=== PATIENT | male | born 1970 | race Caucasian/White ===

== ENCOUNTER 2017-12-20 13:46 | Inpatient (IN) | payer MEDICAID ==
[~2017-12-20] VITALS: Ht 134.6 cm; Wt 41.3 kg
[2017-12-20 14:02] VITALS: BP 122/70
--- NOTE | 2017-12-20 14:02 | NUR ---
47/M leroy GLORIA from a [facility] care facility for evaluation of diarrhea starting today. Patient had x2 episodes of diarrhea. Per EMS, pt is new to the facility and according to them, patient's behavior and mentation is his baseline. Pt non-verbal. Pt agitated and attempting to get out of bed. Pt rocking back in forth in bed. Bilateral upper extremities contracted and bilateral lower extremities contracted. Patient noted diaphoretic. Pt placed in a gown, placed on online services manager, pulse oximetry and blood pressure monitoring. Pt noted sinus tachycardiac. All belongings placed in a belongings back and placed behind the gurney.
[2017-12-20] MEDS ORDERED: NACL 0.9% 1,000 ML IV ONE ×3 (14:05→16:40)
--- NOTE | 2017-12-20 14:22 | NUR ---
LAB AT BEDSIDE FOR BLOOD DRAW.
[2017-12-20] MEDS ORDERED: LORazepam 2 MG/ML VIAL IVP ONE (14:45)
[2017-12-20] MEDS ORDERED: METR250T2 GT (14:46)
[2017-12-20] MEDS ORDERED: TRAZ-286 GT (14:46)
[2017-12-20] MEDS ORDERED: ACET-2619 GT (14:46)
[2017-12-20] MEDS ORDERED: METO5SOL19 GT (14:46)
[2017-12-20] MEDS ORDERED: OLAN2.5T1 GT (14:46)
[2017-12-20] MEDS ORDERED: OLAN20TA1 GT (14:46)
[2017-12-20] MEDS ORDERED: LACT10SO1 GT (14:46)
[2017-12-20] MEDS ORDERED: ALPR0.252 PO (14:46)
[2017-12-20 14:52] LABS: HEMATOCRIT 39.3 % (36-52); HEMOGLOBIN 13.3 g/dL (12.0-18.0); MEAN CORPUSCULAR HEMOGLOBIN 28 pg (27-31); MEAN CORPUSCULAR HGB CONC 34 g/dL (33-37); MEAN CORPUSCULAR VOLUME 84 fL (80-94); PLATELET COUNT (AUTO) 323 K/uL (140-450); RED BLOOD CELL COUNT(AUTO) 4.71 MIL/uL (4.20-6.10); RED CELL DISTRIBUTION WIDTH 16.6 % (11.6-13.7)
[2017-12-20 15:00] LABS: ANION GAP 13.6 (8-16); CARBON DIOXIDE 25.3 mmol/L (21-32); CREATININE 1.1 mg/dL (0.7-1.3); POTASSIUM 3.9 mmol/L (3.5-5.1)
[2017-12-20 15:08] LABS: PROTHROMBIN TIME 13.8 secs (10.8-13.4)
[2017-12-20 15:11] LABS: WHITE BLOOD COUNT (AUTO) 46.8 K/uL (4.8-10.8)
[2017-12-20 15:14] LABS: ALBUMIN 1.8 g/dL (3.4-5.0); LYMPHOCYTES % (MANUAL) 1 % (20-46); MONOCYTES % (MANUAL) 1 % (5-12); TOTAL BILIRUBIN 0.6 mg/dL (0.0-1.0)
[2017-12-20 15:34] LABS: APPEARANCE,URINE CLEAR (CLEAR); BILIRUBIN,URINE NEGATIVE (NEGATIVE); BLOOD, URINE NEGATIVE (NEGATIVE); COLOR,URINE ORANGE (YELLOW); LEUKOCYTE ESTERASE ,URINE NEGATIVE (NEGATIVE); NITRITE, URINE NEGATIVE (NEGATIVE); PH,URINE 5.5 (5.0-9.0); UGLUCOSE NEGATIVE (NEGATIVE)
[2017-12-20 15:36] LABS: RBC,URINE 0-5 (RARE) /HPF (0-5)
--- NOTE | 2017-12-20 15:49 | NUR ---
Spoke with Anny Lebron who is the road gang supervisor at [employer]. She was updated on the status. Pt resides at the [facility]. Patient's uncle Sunil Umana is next of kin.
[2017-12-20] MEDS ORDERED: metroNIDAZOLE 250 MG TAB GT ONE (15:50)
[2017-12-20] MEDS ORDERED: PIPERACILLIN/TAZOBACTAM 3.375 GM in DEXTROSE 5% 50 ML IV ONE (15:55)
--- NOTE | 2017-12-20 16:05 | NUR ---
g-tube residual 0 ml.
--- NOTE | 2017-12-20 16:12 | NUR ---
Pt had x1 episode of diarrhea. Pt was changed and new brief applied. Pt tolerated well. Placed in position of comfort.
--- NOTE | 2017-12-20 16:15 | NUR ---
Pt placed on contact isolation precautions at this for c-diff per Dr. Mccauley.
[2017-12-20] MEDS ORDERED: PIPERACILLIN/TAZOBACTAM 3.375 GM VIAL IV ONE (16:19)
--- NOTE | 2017-12-20 17:05 | NUR ---
Pt had another bowel movement, yellow, foul smelling, diarrhea episode. Pericare provided, new brief applied. New sheets, chucks placed under patient and new gown applied. Pt tolerated well. Vitals are stable at this time.
--- NOTE | 2017-12-20 17:33 | NUR ---
Pt resting comfortably at this time. Pt in stable condition.
--- NOTE | 2017-12-20 18:08 | NUR ---
Pt transferred to ICU 7 via rjose antonio on cardiac monitoring accompanie by EMT Mark, DERIC Zaldivar and myself.
--- NOTE | 2017-12-20 18:08 | NUR ---
Report given to Anny WOOD in ICU.
[2017-12-20] MEDS ORDERED: ACETAMINOPHEN 325 MG TAB GT PRN ×2 (18:10)
[2017-12-20] MEDS ORDERED: LACTULOSE 20 GM/30 ML UDC GT PRN (18:10)
[2017-12-20] MEDS ORDERED: HYDROcodone/APAP 5/325 MG 1 TAB TAB GT PRN (18:10)
--- NOTE | 2017-12-20 18:15 | NUR ---
RECEIVED PT FROM ER VIA GURNEY. PT AWAKE, ALERT, NONVERBAL. SPONTANOUS EYES OPENING. SKIN DRY AND WARM TO TOUCH. ON O2 AT 2 LTR/MIN VIA N/C. LUNGS SOUND DIMINISHED ON AUSCULTATION. PERIPHERAL LINE ON RIGHT HAND 18G. RUNNING NS BOLUS. IV SITE INTACT. NOTED WITH GTUBE ON LUQ. ABDOMEN SOFT, ROUND AND NON-TENDER. BOWEL SOUND PRESENT ON ALL FOUR QUADRANTS. GEIGER'S CATH IN PLACE DRAINING DARK YELLOW URINE VIA GRAVITY. PT HAD X1 BM, YELLOW WATERY STOOL SMALL AMOUNT. STOOL SAMPLE FOR STOOL CULTURE AND C. DIFF TAKEN TO THE LAB. MRSA NARES DONE. PT NOTED WITH BLANCHABLE REDNESS ON LEFT ELBOW AND SACRO COCCYX AREA, NO SKIN TEAR. PHOTO TAKEN. APPLIED RECTAL BAG. KEPT PT CLEAN AND COMFORTABLE. BED IN LOW POSITION, LOCKED. VS T 98.3 P125 R 20 BP 97/83. WILL CONTINUE TO MONITOR.
--- NOTE | 2017-12-20 18:20 | NUR ---
PT NOTED WITH BOTH UPPER AND LOWER EXTREMITIES CONTRACTURES.
--- NOTE | 2017-12-20 19:30 | NUR ---
RECEIVED REPORT FROM AM SHIFT. PT IS AWAKE,NON VERBAL AT THIS TIME. PT ON O2 VIA N/C AT 2 LPM, NO S/S OF RESP DISTRESS,NO SOB AT THIS TIME. LUNGS SOUND CLEAR BILATERALLY. HOB UP 30-45 DEGREES. IV TO RIGHT HAND NO 18. IV NS BOLUS BAG NO [address] PER REPORT[address] GT IN PLACE NO RESIDUAL NOTED,ABD SOFT NON DISTENDED. POSITIVE BOWEL SOUND TO ALL QUADRANTS. PER REPORT PT IS NPO EXCEPT MEDS AT THIS TIME. BUE/BLE CONTRACTURE.EDEMA RIGHT HAND NON PITTING.SKIN NON INTACT PERIRECTAL INCONTINENT DERMATITIS AND LEFT ELBOW REDNESS BLANCHABLE.F/C IN PLACE WITH CLOUDY URINE. KEPT CLEAN AND DRY.
--- NOTE | 2017-12-20 19:34 | NUR ---
REPORT GIVEN TO NOC SHIFT RN BEHZAD FOR CONTINUITY OF CARE. PT ON STABLE CONDITION.
[2017-12-20 20:00] VITALS: BP 99/77
--- NOTE | 2017-12-20 20:30 | NUR ---
IV TO RIGHT HAND PULLED OUT BY PT AND REINSERTED TO LEFT HAND
[2017-12-20] MEDS ORDERED: metroNIDAZOLE 250 MG TAB GT SCH (21:00)
[2017-12-20] MEDS ORDERED: PIPERACILLIN/TAZOBACTAM 3.375 GM in DEXTROSE 5% 50 ML IV SCH (21:00)
[2017-12-20] MEDS: DEXT 5% /NACL 0.9% 1,000 ML IV SCH (21:19)
[2017-12-20] MEDS: PIPER/TAZO 3.375GM/D5W PREMIX 50 ML IV SCH (21:20)
[2017-12-20] MEDS: metroNIDAZOLE 500 MG/NS PREMIX 100 ML IV SCH (21:28)
[2017-12-20] MEDS: OLANZapine 5 MG TAB GT SCH (21:29)
[2017-12-20] MEDS: traZODone 50 MG TAB GT SCH (21:29)
--- NOTE | 2017-12-20 21:30 | NUR ---
NIGHT MEDS GIVEN ORDER
[2017-12-20] MEDS: LORazepam 2 MG/ML VIAL IVP PRN (21:48)
[2017-12-20 21:53] VITALS: BP_SYST 88; BP_SYST 99; BP_DIAS 54; BP_DIAS 77
--- NOTE | 2017-12-20 22:00 | NUR ---
MADE AWARE THE NEW ADMID. JENNIFER CASE CALLED AND LEFT MESSAGE TO CALL BACK FACILITY TO UPDATE PT WAS ADMITTED.
--- NOTE | 2017-12-20 22:50 | NUR ---
COME TO UNIT AND SEE PT,NEW ORDER GIVEN TO START WITH VANCOMYCIN 250 MG Q 6 HRS FOR C.DIFF
[2017-12-21] VITALS (12 sets, daily range): BP systolic 89–113; BP diastolic 48–77
[2017-12-21] MEDS: DEXT 5% /NACL 0.9% 1,000 ML IV SCH ×2 (04:10→19:23)
--- NOTE | 2017-12-21 04:10 | NUR ---
IV DEX5% IN NS STILL RUNNING ORDER BAG STILL ABOUT 600 CC
--- NOTE | 2017-12-21 05:00 | NUR ---
AM CARE GIVEN.PT HAS X1 LIQUIDS STOOL WITH LARGE AMOUNT BROWN COLOR.GOOD PERICARE AND PERIANAL CARE RENDERED.
[2017-12-21] MEDS: PIPER/TAZO 3.375GM/D5W PREMIX 50 ML IV SCH ×3 (05:28→20:56)
[2017-12-21] MEDS: metroNIDAZOLE 500 MG/NS PREMIX 100 ML IV SCH ×3 (05:51→20:56)
[2017-12-21] MEDS: METOCLOPRAMIDE 10 MG/10 ML SYRP UDC GT SCH ×5 (05:52→23:35)
[2017-12-21] MEDS: VANCOMYCIN 1,000 MG VIAL GT SCH ×5 (05:52→23:35)
--- NOTE | 2017-12-21 06:30 | NUR ---
PORTIA BLUM FROM [facility] CALLED AND UPDATE PT CONDITION. ALSO REQUEST FOR THE FLUE AND PN A VAC DATED. PER PORTIA SHE WILL FOLLOW UP
[2017-12-21 06:43] LABS: HEMATOCRIT 38.8 % (36-52); HEMOGLOBIN 12.7 g/dL (12.0-18.0); MEAN CORPUSCULAR HEMOGLOBIN 28 pg (27-31); MEAN CORPUSCULAR HGB CONC 33 g/dL (33-37); MEAN CORPUSCULAR VOLUME 85 fL (80-94); PLATELET COUNT (AUTO) 325 K/uL (140-450); RED BLOOD CELL COUNT(AUTO) 4.55 MIL/uL (4.20-6.10); RED CELL DISTRIBUTION WIDTH 17.1 % (11.6-13.7)
--- NOTE | 2017-12-21 07:00 | NUR ---
PAGED TO NOTIFY NEW ADMIT,NO RETURN CALLL YET ENDORESED TO NEXT SHIFT TO FOLLOW UP.
--- NOTE | 2017-12-21 07:10 | NUR ---
RECEIVED REPORT FROM BEHZAD. PT NOTED MENTALLY RETARDED 47 YEAR OLD MALE FROM BOARD AND CARE WITH HX OF C. DIF., EPILEPSY, DEHYDRATION AND SEPSIS. PT HAS CONTRACTURES ON BOTH UPPER AND LOWER EXTREMITIES. SKIN CHECKS COMPLETE, BRUISE ON LEFT ELBOW AND RIGHT KNEE. REPOSITIONED PT ON LEFT SIDE AND CLEANED PT. HAD 1 YELLOW WATERY STOOL, SAMPLE COLLECTED AND SENT TO LAB. LANCE. LUNGS SOUND CLEAR. ABDOMEN NON TENDER WITH ACTIVE BOWEL SOUNDS. PT REMOVED IV ON LEFT HAND AND DOCTOR NOTIFIED. ORAL CARE PROVIDED AND MOISTURIZER APPLIED. SCD PLACED ON PT. PT HAS GEIGER CATHETER IN PLACE AND SEDIMENTATION IN URINE.
[2017-12-21 08:08] LABS: WHITE BLOOD COUNT (AUTO) 36.3 K/uL (4.8-10.8)
[2017-12-21 08:09] LABS: LYMPHOCYTES % (MANUAL) 1 % (20-46); METAMYELOCYTES % 4 % (0-0); MONOCYTES % (MANUAL) 2 % (5-12)
[2017-12-21 08:15] LABS: ANION GAP 11.6 (8-16); CARBON DIOXIDE 25.9 mmol/L (21-32); POTASSIUM 3.5 mmol/L (3.5-5.1)
[2017-12-21 08:16] LABS: ALBUMIN 1.6 g/dL (3.4-5.0); CREATININE 0.9 mg/dL (0.7-1.3); MAGNESIUM 2.1 mg/dL (1.8-2.4); PHOSPHORUS 3.4 mg/dL (2.5-4.9); TOTAL BILIRUBIN 0.5 mg/dL (0.0-1.0)
--- NOTE | 2017-12-21 08:35 | NUR ---
DR. PICKERING'S OFFICE NOTIFIED OF CONSULT FOR CENTRAL LINE INSERTION.
--- NOTE | 2017-12-21 08:50 | NUR ---
STOMACH RESIDUALS CHECKED, NONE NOTED. MEDICATIONS GIVEN THROUGH G-TUBE. REDNESS NOTED AROUND PORT, CLEANED AND AREA. Addendum: 12/21/17 at 1153 by Era Prajapati RN DRIED AREA, WILL CONTINUE TO MONITOR.
--- NOTE | 2017-12-21 09:06 | NUR ---
PATIENT HAS BEEN SCREENED AND CATEGORIZED HIGH NUTRITION RISK. PATIENT WILL BE SEEN WITHIN 1-2 DAYS OF ADMISSION. 12/20/18-12/21/[address]
[2017-12-21] MEDS: OLANZapine 2.5 MG TAB GT SCH (09:07)
--- NOTE | 2017-12-21 09:30 | NUR ---
KI AND ER NURSE CAME TO PLACE RIGHT EJ ON PT, RECONNECTED TO NS, 100ML/HR/
--- NOTE | 2017-12-21 11:00 | NUR ---
PT HAD EPISODE OF SEVERE WATERY, MUCOSAL, YELLOW DIARRHEA. CHANGED PT. APPLIED Z-GUARD PROTECTION. REPOSITIONED PT. MOISTURIZED MOUTH. SCDS ON. BED 35 DEG AND LEFT IN LOWEST POSITION. Addendum: 12/21/17 at 1152 by Era Prajapati RN APPLIED HYDROGUARD NOT Z-GUARD.
[2017-12-21] MEDS: HYDRAGUARD CREAM TP SCH ×2 (12:45→18:00)
--- NOTE | 2017-12-21 14:00 | NUR ---
PT CATHETER CARE COMPLETED. LARGE BM AND PT CLEANED, REPOSITIONED AND HYDROGUARD APPLIED.
--- NOTE | 2017-12-21 14:55 | NUR ---
CM NOTE INITIAL REVIEW FOR CRITERIA DONE
--- NOTE | 2017-12-21 15:22 | NUR ---
12/21/2017 RD INITIAL ASSESSMENT COMPLETED PLEASE REFER TO NUTRITION ASSESSMENT UNDER CARE ACTIVITY FOR ESTIMATED NUTRITIONAL NEEDS. CONTINUE NPO STATUS MEDICALLY NECESSARY PER DOCUMENTATION, PT WAS RECEIVING ISOSOURCE 1.2, 3.5 CANS PER DAY AT HIS [facility]. [facility] DOES NOT CARRY ISOSOURCE 1.2, WE DO HAVE ISOSOURCE 1.5. RECOMMENDED ALTERNATIVE TO PREVIOUS DIET: ISOSOURCE 1.5 @ 30 ML/HR X 24 HOURS, 250 ML FREE WATER BID OR ISOSOURCE 1.5, 250 ML BOLUS FEED, 3 TIMES PER DAY, [address] TO FOLLOW-UP IN 2-3 DAYS PATIENT IS HIGH RISK. ELOY FELIPE, RD
--- NOTE | 2017-12-21 16:00 | NUR ---
INCONTINENT OF LARGE AMT. WATERY GREENISH STOOLS. BATH GIVEN.
--- NOTE | 2017-12-21 18:00 | NUR ---
DR. THOMPSON HERE TO SEE AND EXAMINE PT.
[2017-12-21] MEDS: HYDRAGUARD CREAM TP PRN (18:07)
--- NOTE | 2017-12-21 18:30 | NUR ---
INCONTINENT OF LARGE AMT GREENISH WATERY STOOLS KEPT CLEAN AND DRY. HYDRAGUARD APPLIED TO BUTTOCKS PERINEAL AREA EVERY AFTER BM.
--- NOTE | 2017-12-21 19:30 | NUR ---
RECEIVED REPORT FROM AM SHIFT. PT IS AWAKE NON VERBAL AT THIS TIME. PT IS MENTAL RETARDATION.PT IS ON ROOM AIR TOLERATED WELL, NO S/S OF RESP. DISTRESS NO SOB. [place] LUNGS SOUND CLEAR. SKIN WARM TO TOUCH. RIGHT EXTERNAL JUNGULAR NO 22 INTACT WELL WITH DEX 5% IN NS AT 100 CC/HR AND IV ABT ORDER WALTER WELL. GT IN PLACE NO RESIDUAL NOTED. ABD SOFT NON DISTENDED. ACTIVE BOWEL SOUNDS IN ALL QUADRANTS. PER AM SHIFT DR. PICKERING WILL COME TO DO CENTRAL LINE. TO FOLLOW UP.PT CONT ON CONTACT ISO FOR C.DIFF. PER REPORT STILL HAVING LOOSE STOOLS. F/C IN PLACE WITH YELLOW CLOUDY URINE NOTED. GOOD PERICARE GIVEN.SCD IN PLACE. KE[PT CLEAN AND DRY. BED PLACE ON LOWEST POSITION. CALL LIGHT IN REACH.
[2017-12-21] MEDS: traZODone 50 MG TAB GT SCH (20:55)
[2017-12-21] MEDS: OLANZapine 5 MG TAB GT SCH (20:56)
--- NOTE | 2017-12-21 21:00 | NUR ---
NIGHT MEDS GIVEN TOLERATING WELL.
--- NOTE | 2017-12-21 22:00 | NUR ---
GT FEEDING STARTED ISOSOURCE 1.5 AT 36 CC/HR AND H20 AT 250 CC Q 6HRS.
[2017-12-21] MEDS: LORazepam 2 MG/ML VIAL IVP PRN (22:10)
--- NOTE | 2017-12-21 22:10 | NUR ---
PT WITH EPISODE OF ANXIETY,HR 140 X/MIN. ATIVAN GIVEN ORDER PRN
--- NOTE | 2017-12-21 22:30 | NUR ---
CALLED. PER WILL DO CENTRAL LINE IN AM.
--- NOTE | 2017-12-21 23:00 | NUR ---
PT LOOK CALM SLEEPING AT THIS TIME HR DOWN TO 109.
[2017-12-22] VITALS (11 sets, daily range): BP systolic 86–118; BP diastolic 59–71
[2017-12-22] MEDS: DEXT 5% /NACL 0.9% 1,000 ML IV SCH ×3 (00:10→20:10)
--- NOTE | 2017-12-22 00:10 | NUR ---
IVF DEX 5% IN NS RUNNING ORDER AT 100 CC/HR . BAG NOT CHANGE REMIND ABOUT 600 CC IN THE BAG.
--- NOTE | 2017-12-22 04:30 | NUR ---
AM CARE GIVEN,SPONGE BATH AND F/C CARE GIVEN. KEPT CLEAN AND DRY.
[2017-12-22] MEDS: PIPER/TAZO 3.375GM/D5W PREMIX 50 ML IV SCH (04:33)
--- NOTE | 2017-12-22 05:18 | NUR ---
PT HAS X1 LARGE LOOSE STOOL,BROWNISH AND GREENISH COLOR.KEPT CLEAR AND DRY.
[2017-12-22] MEDS: metroNIDAZOLE 500 MG/NS PREMIX 100 ML IV SCH ×3 (05:41→20:31)
[2017-12-22] MEDS: VANCOMYCIN 1,000 MG VIAL GT SCH ×3 (05:41→17:03)
--- NOTE | 2017-12-22 06:00 | NUR ---
POTRIA BLUM THE DIRECTOR DIGITAL CATALOGUE FROM FACILITY CALL AND UPDATE PT STATUS. PER PORTIA BLUM PT DO NOT HAVE ANY HX FROM PREVIOUS FACILITY REGARDING FLUE AND PNA VACCINE. SHE SAID SHE ALSO CALL [facility] REGARDING IT,NO RECORD. SHE SAID JUST GIVE IT, WILL F/U WITH AM SHIFT WITH MD TO GET THE ORDER FOR FLUE AND PNA VACCINE.
[2017-12-22 06:45] LABS: HEMATOCRIT 39.1 % (36-52); HEMOGLOBIN 12.8 g/dL (12.0-18.0); MEAN CORPUSCULAR HEMOGLOBIN 28 pg (27-31); MEAN CORPUSCULAR HGB CONC 33 g/dL (33-37); MEAN CORPUSCULAR VOLUME 85 fL (80-94); PLATELET COUNT (AUTO) 274 K/uL (140-450); RED BLOOD CELL COUNT(AUTO) 4.59 MIL/uL (4.20-6.10); RED CELL DISTRIBUTION WIDTH 17.3 % (11.6-13.7); WHITE BLOOD COUNT (AUTO) 25.9 K/uL (4.8-10.8)
[2017-12-22 06:49] LABS: ALBUMIN 1.6 g/dL (3.4-5.0); ANION GAP 13.3 (8-16); CREATININE 0.9 mg/dL (0.7-1.3); MAGNESIUM 2.2 mg/dL (1.8-2.4); PHOSPHORUS 2.1 mg/dL (2.5-4.9); POTASSIUM 3.3 mmol/L (3.5-5.1); TOTAL BILIRUBIN 0.3 mg/dL (0.0-1.0)
--- NOTE | 2017-12-22 07:22 | NUR ---
REPORT GIVEN TO GÉNESIS AM SHIFT MADE AWARE PORTIA FROM FACILITY SAID OKAY TO GIVE PNA AND FLU VACCINE AND ASK GÉNESIS TO MADE AWARE AND GET THE ORDER IN AM.
--- NOTE | 2017-12-22 07:42 | NUR ---
DR.AMIT THOMPSON COME AND MADE AWARE OKAY TO GIVE FLUE AND PNA VACCINE PER FACILITY/PORTIA BLUM. SAID WILL PUT THE ORDER.
--- NOTE | 2017-12-22 07:45 | NUR ---
SEEN BY DR. THOMPSON AT BEDSIDE . ORDER RECEIVED PT. WILL BE DOWNGRADE TO TELE.
[2017-12-22 07:57] LABS: LYMPHOCYTES % (MANUAL) 3 % (20-46); MONOCYTES % (MANUAL) 3 % (5-12)
--- NOTE | 2017-12-22 08:30 | NUR ---
DR THOMPSON VISITS PATIENT, UPDATED ON PRESENT CONDITION, AND ORDERS WRITTEN. PATIENT IS ST OBSERVED ON MONITOR. NO RESP DISTRESS NOTED. JAYDEN SOLIS RN
[2017-12-22] MEDS ORDERED: POTASSIUM PHOSPHATE 15 MM in NACL 0.9% 250 ML IV SCH (09:00)
[2017-12-22] MEDS: OLANZapine 2.5 MG TAB GT SCH (09:58)
[2017-12-22] MEDS: CHOLESTYRAMINE 4 GM/9 GM PKT GT SCH ×2 (09:59→20:30)
[2017-12-22] MEDS: PHARMACY COMMENTS MC SCH ×2 (12:00→19:30)
--- NOTE | 2017-12-22 12:30 | NUR ---
PATIENT WITH LOOSE STOOL, BATHED AND PARTIAL LINEN CHANGE. NO SIGNS SYMPTOMS OF PAIN. SKIN CLEAN AND DRY, INTACT. JAYDEN SOLIS RN
[2017-12-22] MEDS: HYDRAGUARD CREAM TP SCH (12:54)
[2017-12-22] MEDS: METOCLOPRAMIDE 10 MG/10 ML SYRP UDC GT SCH ×3 (12:55→17:06)
--- NOTE | 2017-12-22 13:30 | NUR ---
Patient family Chito Grace with visiting with patient, I updated on present condition, and family does voice having concerns regarding patient needing a hospital social worker to coordinate care. Family does say they will stop by tomorrow and visit with patient. Family said that patient is usually much more awake, and understands everything, and participates much more in care rendered. Joaquim Cardenas RN
--- NOTE | 2017-12-22 17:06 | NUR ---
TRANSFERRING PATIENT TO TELEMETRY 108 B AND WILL GIVE BEDSIDE REPORT ON ARRIVAL. JAYDEN SOLIS RN
--- NOTE | 2017-12-22 17:10 | NUR ---
RECEIVED PATIENT FROM ICU NURSE. PATIENT IS ON C. DIFF PRECAUTIONS AND SEIZURE PRECAUTIONS. PLACED PADS IN PLACE FOR SAFETY MEASURES. LOWERED BED TO THE LOWEST SETTINGS. FALL RISK SIGNS IN PLACE. PATIENT IS AWAKE BUT APHASIC. PATIENT HAS GEIGER CATHETER IN PLACE AND G-TUBE. WILL CONNECT PATIENT BACK TO TUBE FEEDING. PATIENT HAS IV ACCESS ON RIGHT EJ. PATIENT'S VITAL SIGNS ARE WITHIN NORMAL LIMITS. WILL CONTINUE TO MONITOR PATIENT.
--- NOTE | 2017-12-22 19:22 | NUR ---
GAVE REPORT TO NIGHTSHIFT RN. ENDORSED CARE TO NIGHTSHIFT NURSE. PATIENT IS IN STABLE CONDITION.
--- NOTE | 2017-12-22 19:25 | NUR ---
RECEIVED PT FROM DAY SHIFT NURSE. PT RESTING IN BED IN TELEMETRY MONITORING. PT IN STABLE CONDITION. PT APHASIC, MUSCULAR CONTRACTURES ON BOTH EXTREMITIES. BEDBOUND PT. SKIN INTACT, SACRAL REDNESS NOTED, BLANCHABLE. RIGHT IJ #20G, D5NS 100ML/HR. G-TUBE FEEDING ISOSOURCE 36ML/HR TO RESTART. SIDE RAILS UP AND PADDED FOR SEIZURE PRECAUTIONS. BED IN LOWEST POSITION. WITH FREQUENT ROUNDS NEEDED. ON CONTACT ISOLATION FOR C.DIFF. NO S/S OF DISTRESS OR DISCOMFORT NOTED. WILL CONTINUE TO MONITOR.
[2017-12-22] MEDS: traZODone 50 MG TAB GT SCH (20:30)
[2017-12-22] MEDS: OLANZapine 5 MG TAB GT SCH (20:31)
--- NOTE | 2017-12-22 21:30 | NUR ---
PORTIA BLUM JUST CALLED TO GET UPDATE ABOUT PT CONDITION.GAVE HER ALSO PRESENT ROOM NUMBER.
[2017-12-22] MEDS: HYDRAGUARD CREAM TP PRN (21:35)
--- NOTE | 2017-12-22 23:00 | NUR ---
MADE ROUNDS. PT IS ASLEEP. NO S/S OF AY DISCOMFORT NOR DISTRESS NOTED.
[2017-12-23] VITALS: BP 107/70
[2017-12-23] MEDS: VANCOMYCIN 1,000 MG VIAL GT SCH ×4 (00:04→17:13)
[2017-12-23] MEDS: METOCLOPRAMIDE 10 MG/10 ML SYRP UDC GT SCH ×4 (00:05→17:13)
[2017-12-23] MEDS: HYDRAGUARD CREAM TP SCH ×2 (01:00→12:48)
--- NOTE | 2017-12-23 01:00 | NUR ---
PT REPOSITIONED FOR COMFORT. PERINEAL AREA WITH TINY SMEAR OF STOOL .CLEANED AND PAT DRY. APPLIED SOME HYDRA GUARD.
--- NOTE | 2017-12-23 03:00 | NUR ---
REPOSITIONED FOR COMFORT. NO DISTRESS NOTED.
[2017-12-23 04:00] VITALS: BP 100/64
[2017-12-23] MEDS: DEXT 5% /NACL 0.9% 1,000 ML IV SCH ×2 (04:57→16:10)
[2017-12-23] MEDS: metroNIDAZOLE 500 MG/NS PREMIX 100 ML IV SCH ×3 (04:57→20:05)
--- NOTE | 2017-12-23 05:00 | NUR ---
HAD ANOTHER MODERATE LOOSE STOOL. CLEANED AND KEPT DRY. APPLIED CREAM ORDERED ON THE REDNESS AROUND PERINEAL AREA.
[2017-12-23] MEDS: HYDRAGUARD CREAM TP PRN (05:05)
[2017-12-23] MEDS: PHARMACY COMMENTS MC SCH ×4 (05:59→17:13)
--- NOTE | 2017-12-23 06:00 | NUR ---
NEW GT FEEDING BAG STARTED, WITH NEW TUBINGS. TOLERATING FEEDING WELL.
--- NOTE | 2017-12-23 07:15 | NUR ---
ENDORSED PT IN STABLE CONDITION TO AM NURSE.
--- NOTE | 2017-12-23 07:20 | NUR ---
RECEIVED REPORT FROM COLLEGE BASKETBALL COACH NURSE, PT IS RESTING IN BED, AAOX1, APHASIC, PT IS IN SEMI FOWLERS POSITION, IV IS ON THE RT UPPER CHEST, PATENT, INTACT, FLUSHING WELL, PT HAS GEIGER CATHETER IN PLACE, PT IS ON TUBE FEEDING AT THIS TIME, NO S/S OF RESPIRATORY DISTRESS OR DISCOMFORT NOTED, DISCUSSED PLAN OF CARE WITH PT, PT UNABLE TO VERBALIZE UNDERSTANDING, SAFETY/FALL/SEIZURE PRECAUTIONS ARE IN PLACE, CALL LIGHT IS WITHIN REACH, WILL CONTINUE TO MONITOR.
[2017-12-23 08:00] VITALS: BP 116/71
--- NOTE | 2017-12-23 08:13 | NUR ---
ENDORSED PT TO NINA CONNOLLY. FOR CONTINUITY OF CARE. PT STABLE AT THIS TIME.
--- NOTE | 2017-12-23 08:14 | NUR ---
RECEIVED REPORT FROM NINA BRODERICK FOR CONTINUITY OF CARE. PATIENT LYING DOWN IN BED COMFORTABLY. NO DISTRESS NOTED. FLACC 0. SAFETY MEASURES IN PLACE, CALL LIGHT WITHIN REACH, SEIZURE PRECAUTIONS IN PLACE. WILL CONTINUE TO MONITOR.
--- NOTE | 2017-12-23 08:15 | NUR ---
GTUBE IN PLACE, NO RESIDUALS NOTED. ISOSOURCE GTUBE FEEDING INFUSING PER MD ORDERS. WILL CONTINUE TO MONITOR.
[2017-12-23 09:32] LABS: HEMATOCRIT 38.9 % (36-52); HEMOGLOBIN 12.8 g/dL (12.0-18.0); MEAN CORPUSCULAR HEMOGLOBIN 28 pg (27-31); MEAN CORPUSCULAR HGB CONC 33 g/dL (33-37); MEAN CORPUSCULAR VOLUME 85 fL (80-94); PLATELET COUNT (AUTO) 334 K/uL (140-450); RED BLOOD CELL COUNT(AUTO) 4.59 MIL/uL (4.20-6.10); RED CELL DISTRIBUTION WIDTH 17.3 % (11.6-13.7); WHITE BLOOD COUNT (AUTO) 20.6 K/uL (4.8-10.8)
[2017-12-23 09:45] LABS: ANION GAP 7.5 (8-16); CARBON DIOXIDE 27.5 mmol/L (21-32); CREATININE 0.7 mg/dL (0.7-1.3)
[2017-12-23 09:49] LABS: MAGNESIUM 1.7 mg/dL (1.8-2.4); PHOSPHORUS 2.4 mg/dL (2.5-4.9)
[2017-12-23] MEDS: OLANZapine 2.5 MG TAB GT SCH (09:54)
[2017-12-23] MEDS: CHOLESTYRAMINE 4 GM/9 GM PKT GT SCH ×2 (10:00→20:06)
--- NOTE | 2017-12-23 10:00 | NUR ---
PATIENT LYING IN BED COMFORTABLY. NO DISTRESS NOTED. FLACC 0. CONDITION UNCHANGED. SCHEDULED MEDICATIONS DUE GIVEN. PATIENT TOLERATED WELL. NO RESIDUALS FROM GTUBE FEEDING. SAFETY MEASURES IN PLACE, CALL LIGHT WITHIN REACH, SEIZURE PRECAUTIONS IN PLACE. WILL CONTINUE TO MONITOR.
[2017-12-23 10:14] LABS: BASOPHILS % (MANUAL) 0 % (0-2); EOSINOPHILS % (MANUAL) 1 % (0-4); LYMPHOCYTES % (MANUAL) 8 % (20-46); MONOCYTES % (MANUAL) 4 % (5-12)
[2017-12-23 12:00] VITALS: BP 112/70
--- NOTE | 2017-12-23 12:56 | NUR ---
PATIENT LYING DOWN IN BED COMFORTABLY. NO DISTRESS NOTED. FLACC 0. CONDITION UNCHANGED. SCHEDULED MEDICATIONS DUE GIVEN. ASSISTED DAIRY INSPECTOR IN REPOSITIONING AND CLEANING PATIENT. DR. THOMPSON AT BEDSIDE REVIEWING PLAN OF CARE WITH PATIENT. PATIENT UNABLE TO COMPREHEND. IV SITE INTACT, PATENT, AND INFUSING IVF PER ORDERS. GEIGER CATHETER INTACT, PATENT, AND DRAINING DARK SHASHI URINE. SAFETY MEASURES IN PLACE, CALL LIGHT WITHIN REACH, SEIZURE PRECAUTIONS IN PLACE. WILL CONTINUE TO MONITOR.
[2017-12-23] MEDS ORDERED: MAG SULF 2000 MG/WATER PREMIX 50 ML IV SCH (13:15)
[2017-12-23] MEDS ORDERED: KCL 20 MEQ/WATER INJ PREMIX 100 ML IV SCH (13:15)
--- NOTE | 2017-12-23 14:15 | NUR ---
PATIENT LYING IN BED SLEEPING, AROUSABLE BY VOICE. NO DISTRESS NOTED. FLACC 0. CONDITION UNCHANGED. SAFETY MEASURES IN PLACE, CALL LIGHT WITHIN REACH, SEIZURE PRECAUTIONS IN PLACE. WILL CONTINUE TO MONITOR.
--- NOTE | 2017-12-23 14:30 | NUR ---
PATIENT LYING DOWN IN BED. NO DISTRESS NOTED. CONDITION UNCHANGED. FLACC 0. POTASSIUM VIA IVPB HANGED PER MD ORDERS. WILL HANG MAGNESIUM 2GM VIA IVPB AFTER POTASSIUM COMPLETES PER MD ORDERS.
[2017-12-23 16:00] VITALS: BP 118/74
--- NOTE | 2017-12-23 16:51 | NUR ---
PATIENT LYING IN BED WATCHING TV. NO DISTRESS NOTED. RESPIRATIONS EVEN, UNLABORED, ON ROOM AIR. CONDITION UNCHANGED. POTASSIUM IV COMPLETED. STARTED MAGNESIUM IVPB PER ORDERS. PERFORMED ORAL CARE. SAFETY MEASURES IN PLACE, CALL LIGHT WITHIN REACH, SEIZURE PRECAUTIONS IN PLACE. WILL CONTINUE TO MONITOR.
--- NOTE | 2017-12-23 17:15 | NUR ---
PATIENT LYING IN BED WATCHING TV. NO DISTRESS NOTED. FLACC 0. SCHEDULED MEDICATIONS DUE GIVEN. PATIENT TOLERATED WELL. SAFETY MEASURES IN PLACE, CALL LIGHT WITHIN REACH. WILL CONTINUE TO MONITOR.
--- NOTE | 2017-12-23 17:32 | NUR ---
ASSISTED PSYCHODRAMATIST IN CLEANING AND REPOSITIONING PATIENT. SAFETY MEASURES IN PLACE, CALL LIGHT WITHIN REACH. WILL CONTINUE TO MONITOR.
--- NOTE | 2017-12-23 19:15 | NUR ---
GAVE REPORT TO PODIATRIST ORTHOPEDIC NURSE FOR CONTINUITY OF CARE. PATIENT IN STABLE CONDITION.
--- NOTE | 2017-12-23 19:16 | NUR ---
PATIENT REPORT RECEIVED FROM MORNING NURSE AT BEDSIDE. PATIENT IS AWAKE, RESTING COMFORTABLY IN BED. PATIENT IS APHASIC, BEDBOUND. RIGHT EXTERNAL JUGULAR IV SITE NOTED, IVF INFUSING WELL. GTUBE NOTED WITH TUBE FEEDING RUNNING AT 36ML/HR. SEIZURE, FALL, SAFETY, AND ASPIRATION PRECAUTIONS IN PLACE. BED IN LOWEST POSITION, SIDE RAILS UP. WILL CONTINUE TO MONITOR.
[2017-12-23 20:00] VITALS: BP 101/64
[2017-12-23] MEDS: traZODone 50 MG TAB GT SCH (20:06)
[2017-12-23] MEDS: OLANZapine 5 MG TAB GT SCH (20:06)
--- NOTE | 2017-12-23 22:00 | NUR ---
PATIENT HAD A BOWEL MOVEMENT. STOOL IS LIQUID IN CONSISTENCY AND COLORED BROWN. PERICARE DONE. PATIENT REPOSITIONED FOR COMFORT. WILL CONTINUE TO MONITOR.
[2017-12-24] VITALS: BP 116/74
[2017-12-24] MEDS: METOCLOPRAMIDE 10 MG/10 ML SYRP UDC GT SCH ×4 (01:02→17:02)
[2017-12-24] MEDS: HYDRAGUARD CREAM TP SCH ×2 (01:15→13:06)
[2017-12-24] MEDS: DEXT 5% /NACL 0.9% 1,000 ML IV SCH ×3 (02:10→22:10)
[2017-12-24 04:00] VITALS: BP 111/79
[2017-12-24] MEDS: LORazepam 2 MG/ML VIAL IVP PRN ×2 (04:45→22:02)
--- NOTE | 2017-12-24 04:45 | NUR ---
PATIENT RESTLESS/AGITATED AND HEART RATE 126, WILL GIVE PRN MEDICATION ORDERED.
--- NOTE | 2017-12-24 05:00 | NUR ---
HEART RATE NOW 105
[2017-12-24] MEDS: VANCOMYCIN 1,000 MG VIAL GT SCH ×4 (05:21→17:03)
[2017-12-24] MEDS: metroNIDAZOLE 500 MG/NS PREMIX 100 ML IV SCH ×3 (05:21→20:36)
[2017-12-24] MEDS: PHARMACY COMMENTS MC SCH ×4 (05:21→18:00)
[2017-12-24 07:03] LABS: HEMATOCRIT 36.2 % (36-52); HEMOGLOBIN 11.7 g/dL (12.0-18.0); MEAN CORPUSCULAR HEMOGLOBIN 27 pg (27-31); MEAN CORPUSCULAR HGB CONC 32 g/dL (33-37); MEAN CORPUSCULAR VOLUME 85 fL (80-94); PLATELET COUNT (AUTO) 357 K/uL (140-450); RED BLOOD CELL COUNT(AUTO) 4.28 MIL/uL (4.20-6.10); RED CELL DISTRIBUTION WIDTH 17.2 % (11.6-13.7); WHITE BLOOD COUNT (AUTO) 18.4 K/uL (4.8-10.8)
[2017-12-24 07:14] LABS: ANION GAP 10.8 (8-16); CARBON DIOXIDE 25.3 mmol/L (21-32); CREATININE 0.6 mg/dL (0.7-1.3); POTASSIUM 3.1 mmol/L (3.5-5.1)
--- NOTE | 2017-12-24 07:20 | NUR ---
PATIENT REPORT GIVEN TO MORNING NURSE AT BEDSIDE. PATIENT IS IN STABLE CONDITION.
[2017-12-24 07:24] LABS: MAGNESIUM 1.9 mg/dL (1.8-2.4); PHOSPHORUS 2.7 mg/dL (2.5-4.9)
--- NOTE | 2017-12-24 07:25 | NUR ---
RECEIVED REPORT FROM SUEDE CLEANER NURSE, PT IS AWAKE RESTING IN BED, AAOX1, APHASIC, PT IS ON ROOM AIR, PT HAS EXTERNAL IV ON RT IJ, PATENT, INTACT, FLUSHING WELL, NO S/S OF RESPIRATORY DISTRESS OR DISCOMFORT NOTED, PT HAS A G TUBE IN PLACE, NO RESIDUAL AT THIS TIME, PT HAS BILATERAL UPPER AND LOWER EXT. CONTRACTURES, PT HAS REDNESS IN PERINEAL AREA, DISCUSSED PLAN OF CARE WITH PT, PT UNABLE TO VERBALIZE UNDERSTANDING, SAFETY/FALL/SEIZURE PRECAUTIONS ARE IN PLACE, CALL LIGHT IS WITHIN REACH, WILL CONTINUE TO MONITOR.
[2017-12-24 07:53] LABS: LYMPHOCYTES % (MANUAL) 8 % (20-46); MONOCYTES % (MANUAL) 6 % (5-12)
[2017-12-24 08:00] VITALS: BP 117/71
[2017-12-24] MEDS: CHOLESTYRAMINE 4 GM/9 GM PKT GT SCH ×2 (08:36→20:35)
[2017-12-24] MEDS: OLANZapine 2.5 MG TAB GT SCH (08:36)
[2017-12-24] MEDS ORDERED: POTASSIUM CHLORIDE 20% 40 MEQ/15 ML UDC GT SCH ×2 (10:05→13:30)
--- NOTE | 2017-12-24 11:45 | NUR ---
WOUND CARE EVALUATION NOTE: REASON FOR EVALUATION: LOW JESSE SCORE SKIN ASSESSMENT DONE ON THIS 47 Y/O MALE PATIENT ADMITTED TO [facility], WITH INITIAL DIAGNOSIS OF FEVER, DIARRHEA. 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 ALL ABOVE INFORMATION WAS OBTAINED FROM THE ADMISSION H&P. LABS ARE WBC 18.4, H/H 11.7/36.2, GLUCOSE 141 AND ALBUMIN 1.6. PATIENT EYES OPEN AND CONSTANTLY MOVE HANDS DURING ASSESSMENT. SKIN WARM TO TOUCH WNL, TOENAILS ARE SLIGHTLY THICKENED, NO EDEMA,, WITH FEW HAIR GROWTH AND BILATERAL PEDAL PULSES PRESENT AND NORMAL. BOWEL INCONTINENT, NOTICE LARGE [place] DARK BROWN LIQUID STOOL DURING ASSESSMENT. NEEDS MAX ASSISTANCE IN TURNING. INITIAL PLAN OF CARE AND PRESSURE PREVENTIVE MEASURES DISCUSSED WITH PRIMARY RN. INTEGUMENTARY: PERIPHERAL IV SITE TO RJV, DRESSING CLEAN AND IN PLACE. GT REYES STOMA SKIN INTACT LEFT ELBOW ERYTHEMA INCONTINENT ASSOCIATE DERMATITIS TO SACRALCOCCYX , L/R BUTTOCKS TO PERINEUM - RED AND MOIST, SKIN INTACT BLE HIPS AND KNEES CONTRACTURES RECOMMENDATIONS: -LEFT ELBOW,SACRALCOCCYX, BILATERAL BUTTOCKS, PERINEUM: CLEANSE WITH MILD SOAP AND WATER, PAT DRY, APPLY HYDRAGUARD BIDWC AND PRN WITH SOILING LEAVE OPEN TO AIR -TURN AND REPOSITION PATIENT Q2H TO LEFT AND RIGHT SIDE ONLY TO OFFLOAD SACRALCOCCYX AND BUTTOCKS -ASSESS AND MONITOR SKIN CONDITION DURING POSITION CHANGE, PLEASE PAY ATTENTION TO SACRALCOCCYX, ELBOWS AND HEELS -OFFLOAD BILATERAL HEELS BY PLACING PILLOWS UNDER CALVES AT ALL TIMES, UNLESS OTHERWISE CONTRAINDICATED -KEEP SKIN CLEAN AND DRY AT ALL TIMES. -PRESSURE REDISTRIBUTION SURFACE THERAPY. RECOMMENDATIONS DISCUSSED WITH PRIMARY RN PLEASE CONTACT [facility] FOR ANY CONCERNS, QUESTIONS AND CHANGES IN WOUND CONDITION.
[2017-12-24 12:00] VITALS: BP 107/61
--- NOTE | 2017-12-24 13:41 | NUR ---
CM NOTE CONCURRENT REVIEW FOR CRITERIA DONE
--- NOTE | 2017-12-24 15:08 | NUR ---
12/24/17 RD FOLLOW UP COMPLETED. PLEASE REFER TO NUTRITION ASSESSMENT UNDER CARE ACTIVITY FOR ESTIMATED NUTRITIONAL NEEDS. PT RECEIVING ENTERAL NUTRITION SUPPORT: CURRENT TUBE FEED PROVIDES 1296 KCALS AND 59 GM PRO PER DAY TO MEET 130% EST ENERGY NEEDS AND 118% EST PRO NEEDS PER DAY. RD TO FOLLOW-UP IN 3-5 DAYS PATIENT IS MODERATE RISK. ELOY FELIPE, RD
[2017-12-24 16:00] VITALS: BP 113/76
--- NOTE | 2017-12-24 16:30 | NUR ---
PT TRANSFERRED TO WOUND CARE BED, PT TOLERATED WELL, WILL CONTINUE TO MONITOR.
--- NOTE | 2017-12-24 19:10 | NUR ---
ENDORSED PT TO YARDER BOSS NURSE FOR CONTINUITY OF CARE, PT STABLE AT THIS TIME.
--- NOTE | 2017-12-24 19:12 | NUR ---
RECEIVED PT AWAKE, APHASIC, VITAL SIGNS TAKEN, AFEBRILE, ST WITH 120 BPM, NO SOB NOTED, FLACC-0, G-TUBE FEEDING INFUSING, HOB ELEVATED AT ALL TIMES, IVF INFUSING WELL, GEIGER CATH IN PLACE WITH SHASHI COLORED URINE OUTPUT, SEIZURE PRECAUTION IN PLACE WITH SIDE RAILS UP AND BED ALARM ON, CALL LIGHT WITHIN REACH.
[2017-12-24 20:00] VITALS: BP 121/72
[2017-12-24] MEDS: OLANZapine 5 MG TAB GT SCH (20:36)
[2017-12-24] MEDS: traZODone 50 MG TAB GT SCH (21:02)
--- NOTE | 2017-12-24 22:05 | NUR ---
PT RESTLESS, HR-130'S, MEDICATED PRN WITH ATIVAN IVP, MONITORED CLOSELY.
[2017-12-25] VITALS: BP 113/73
--- NOTE | 2017-12-25 | NUR ---
PT SLEEPING, OPEN EYES TO TOUCH, VITAL SIGNS STABLE, ST ON TELE WITH 110'S BPM, 5 ML RESIDUAL NOTED, DUE MEDS GIVEN THRU G-TUBE, CONTINUE TO MONITOR CLOSELY.
[2017-12-25] MEDS: VANCOMYCIN 1,000 MG VIAL GT SCH ×5 (00:07→23:41)
[2017-12-25] MEDS: METOCLOPRAMIDE 10 MG/10 ML SYRP UDC GT SCH ×5 (00:07→23:40)
[2017-12-25] MEDS: PHARMACY COMMENTS MC SCH ×4 (00:07→18:31)
[2017-12-25] MEDS: HYDRAGUARD CREAM TP SCH ×2 (00:08→13:28)
--- NOTE | 2017-12-25 00:34 | NUR ---
BM WITH LARGE LOOSE BLACK STOOL, PERINEAL CARE DONE, HYDRAGUARD APPLIED TO PERINEAL AREA, CONTINUE TO REPSOTION Q2H AND OFFLOAD PRESSURE AREAS, ATTEMPT TO DO ORAL CARE BUT PT NON-COMPLIANT, UNABLE TO FOLLOW COMMAND, MONITORED CLOSELY.
[2017-12-25] MEDS: DEXT 5% /NACL 0.9% 1,000 ML IV SCH ×3 (01:13→18:10)
[2017-12-25 04:00] VITALS: BP 121/75
[2017-12-25] MEDS: metroNIDAZOLE 500 MG/NS PREMIX 100 ML IV SCH ×3 (04:06→20:26)
[2017-12-25] MEDS: ALPRAZolam 0.25 MG TAB PO PRN ×3 (05:03→23:40)
--- NOTE | 2017-12-25 05:10 | NUR ---
PT AWAKE AND RESTLESS, 5 ML RESIDUAL NOTED, DUE MEDS AND XANAX PRN GIVEN THRU G-TUBE, AM CARE DONE, REPOSITIONED AND OFFLOAD PRESSURE AREAS, MONITORED CLOSELY.
--- NOTE | 2017-12-25 06:30 | NUR ---
PT SEEN AWAKE, NO SIGNS OF DISTRESS, IVF INFUSING WELL, G-TUBE ON-GOING, HOB ELEVATED, MONITORED CLOSELY.
[2017-12-25 06:57] LABS: HEMATOCRIT 33.3 % (36-52); HEMOGLOBIN 11.1 g/dL (12.0-18.0); MEAN CORPUSCULAR HEMOGLOBIN 28 pg (27-31); MEAN CORPUSCULAR HGB CONC 33 g/dL (33-37); MEAN CORPUSCULAR VOLUME 84 fL (80-94); PLATELET COUNT (AUTO) 367 K/uL (140-450); RED BLOOD CELL COUNT(AUTO) 3.99 MIL/uL (4.20-6.10); RED CELL DISTRIBUTION WIDTH 17.3 % (11.6-13.7); WHITE BLOOD COUNT (AUTO) 14.3 K/uL (4.8-10.8)
--- NOTE | 2017-12-25 07:10 | NUR ---
PT SLEEPING, NO SIGNS OF DISTRESS, BEDSIDE REPORT GIVEN TO RN JAZMÍN FOR CONTINUITY OF CARE.
--- NOTE | 2017-12-25 07:30 | NUR ---
RECEIVED ON BED AWAKE AND ALERT, CONFUSED. APHASIC. NO SOB NOTED, NO SIGNS OF PAIN AT THIS TIME. WITH IV TO RT IJ PATENT AND INTACT. CHEST, DIMINISHED AIR ENTRY TO THE BASES. ABDOMEN SOFT, BOWEL SOUNDS PRESENT, WITH G-TUBE PATENT AND IN PLACE, 15 MLS OF RESIDUAL NOTED. PT CONTRACTED BOTH UPPER AND LOWER EXTREMITIES. WITH GEIGER DRAINING CLEAR, SLIGHTLY SHASHI URINE IN MODERATE AMOUNTS. SCD' IN PLACE. WITH SACRAL REDNESS NOTED, WILL REPOSITION PT EVERY 2 HRS. BED ON ALARM, 3 SIDERAILS UP. WILL CONTINUE TO MONITOR PT.
[2017-12-25 07:37] LABS: CREATININE 0.5 mg/dL (0.7-1.3)
[2017-12-25 07:42] LABS: EOSINOPHILS % (MANUAL) 6 % (0-4); LYMPHOCYTES % (MANUAL) 14 % (20-46); MONOCYTES % (MANUAL) 7 % (5-12)
[2017-12-25 07:56] LABS: MAGNESIUM 1.9 mg/dL (1.8-2.4); PHOSPHORUS 2.4 mg/dL (2.5-4.9)
[2017-12-25 08:00] VITALS: BP 119/67
[2017-12-25] MEDS: OLANZapine 2.5 MG TAB GT SCH (09:40)
[2017-12-25] MEDS: CHOLESTYRAMINE 4 GM/9 GM PKT GT SCH ×2 (09:40→20:26)
--- NOTE | 2017-12-25 10:28 | NUR ---
I contact Patient's certified solid waste facility operator Anny Lebron ([facility]ly [facility]) from [facility] [employer]. I inquired patient's [facility] Senior Director Finance Information to discuss patients current status. Pereira stated ([facility]) window caser been Rk Nuria Иван . I thank Mrs. Lebron for providing information and ended the call.
--- NOTE | 2017-12-25 10:38 | NUR ---
I call Mr. Nuria Oates Patient's [facility] Freezer Assistant to provide him with patient's current status and to confirm information provided by Hunting And Fishing Guide Anny Pereira. Mr. Oates stated that patient is not conserved but still under the care and services of the [facility]. Mr. Oates stated hat Patient has no other family than an uncle Sunil Heirs but do not have much of a relationship with patient and do not visit him often. Mr. Oates stated that patient is to return to same facility after he is stable and ready for discharge from [facility].
[2017-12-25] MEDS ORDERED: POTASSIUM CHLORIDE 20% 40 MEQ/15 ML UDC GT SCH (11:51)
[2017-12-25 12:00] VITALS: BP 160/62
--- NOTE | 2017-12-25 12:15 | NUR ---
ORAL SECRETIONS SUCTIONED REGULARLY.
--- NOTE | 2017-12-25 15:15 | NUR ---
PT RESTING, NO SOB NOTED. NO SIGNS OF PAIN.
[2017-12-25 16:00] VITALS: BP 121/59
[2017-12-25] MEDS: ONDANSETRON 4 MG/2 ML VIAL IVP PRN (16:10)
[2017-12-25] MEDS ORDERED: NACL 0.9% 500 ML IV SCH ×2 (19:10→21:00)
--- NOTE | 2017-12-25 19:16 | NUR ---
DR. Marcos THOMPSON NOTIFIED WITH INCREASED HEART RATE, 157/MIN. PT AWAKE, WATCHING TV. NO SOB NOTED. NEW ORDERS GIVEN.
--- NOTE | 2017-12-25 19:37 | NUR ---
500 MLS NS IV BOLUS STARTED. PT AWAKE. NO SOB NOTED. NO SIGNS OF PAIN. ENDORSED TO NEXT SHIFT NURSE FOR CONTINUITY OF CARE.
--- NOTE | 2017-12-25 19:40 | NUR ---
RECEIVED PT AWAKE, APHASIC, NO SIGNS OF DISTRESS, VITAL SIGNS TAKEN, TEMP-101.5, ST WITH HR-152 BPM, COOLING MEASURES STARTED, WILL MEDICATE WITH TYLENOL, BOLUS NS 500ML INFUSING WELL, G-TUBE FEEDING ON-GOING, HOB ELEVATED AT ALL TIMES, GEIGER CATH IN PLACE WITH LIGHT SHASHI URINE, MITTENS TO BOTH HANDS, SAFETY AND SEIZURE PRECAUTION WITH SIDE RAILS UP AND PADDED, BED ALARM ON, NEEDS ANTICIPATED, WILL REPOSITION Q2H AND OFFLOAD PRESSURES AREAS, CALL LIGHT WITHIN REACH.
[2017-12-25 20:00] VITALS: BP 118/66
[2017-12-25] MEDS: traZODone 50 MG TAB GT SCH (20:25)
[2017-12-25] MEDS: OLANZapine 5 MG TAB GT SCH (20:25)
[2017-12-25] MEDS: LORazepam 2 MG/ML VIAL IVP PRN (20:26)
--- NOTE | 2017-12-25 20:30 | NUR ---
5ML G-TUBE RESIDUAL NOTED, DUE MEDS ADMINISTERED, ATTEMPT TO DO ORAL CARE BUT PT NON-COMPLIANT AND UNABLE TO FOLLOW COMMANDS, BM WITH WATERY BLACK STOOL MODERATE AMOUNT, PERINEAL CARE DONE, CONTINUE ON CONTACT ISOLATION FOR C-DIFF.
[2017-12-25] MEDS ORDERED: NACL 0.9% 500 ML IV ONE (21:50)
--- NOTE | 2017-12-25 21:50 | NUR ---
DR Edmundo THOMPSON HERE, UPDATED ON PT'S CONDITION, TEMP-100.2, HR OF 130'S, WITH ORDER TO GIVE ANOTHER BOLUS OF NS 500ML, PT MONITORED CLOSELY.
[2017-12-26] VITALS: BP 130/82
[2017-12-26] MEDS: PHARMACY COMMENTS MC SCH ×4 (00:10→18:27)
[2017-12-26] MEDS: ONDANSETRON 4 MG/2 ML VIAL IVP PRN (00:10)
[2017-12-26] MEDS: HYDRAGUARD CREAM TP SCH ×2 (00:13→13:00)
--- NOTE | 2017-12-26 00:15 | NUR ---
PT VOMITED WITH COFFEE GROUND EMESIS MODERATE AMOUNT, MEDICATED PRN WITH ZOFRAN IVP, 10ML G-TUBE RESIDUAL NOTED, MAINTAIN HOB ELEVATED AT ALL TIMES, MONITORED CLOSELY.
[2017-12-26] MEDS ORDERED: PANTOPRAZOLE 40 MG INJ VIAL IVP SCH (00:49)
--- NOTE | 2017-12-26 01:00 | NUR ---
PT VOMITED AGAIN WITH COFFEE GROUND EMESIS MODERATE AMOUNT, PAGED DR Radha THOMPSON WITH NEW ORDERS, PUT ON NPO ORDERED, TO START ON PROTONIX IVP Q12H, WITH ORDER FOR GI CONSULT, WILL NOTIFY DR OBANDO WHO IS ALREADY IN THE CASE IN AM.
[2017-12-26 04:00] VITALS: BP 130/79
[2017-12-26] MEDS: metroNIDAZOLE 500 MG/NS PREMIX 100 ML IV SCH (04:25)
[2017-12-26] MEDS: DEXT 5% /NACL 0.9% 1,000 ML IV SCH ×2 (04:26→14:10)
--- NOTE | 2017-12-26 04:30 | NUR ---
PT AWAKE, VITAL SIGNS TAKEN, BP STABLE, ST WITH 126 BPM, AFEBRILE WITH TEMP-97.8, BM WITH WATERY BLACK STOOL, PERINEAL CARE DONE, REPOSITIONED AND OFFLOAD PRESSURE AREAS, FLAGYL IVPB ADMINISTERED, MONITORED CLOSELY.
[2017-12-26] MEDS: VANCOMYCIN 1,000 MG VIAL GT SCH ×3 (06:29→17:27)
[2017-12-26] MEDS: METOCLOPRAMIDE 10 MG/10 ML SYRP UDC GT SCH ×3 (06:29→17:27)
--- NOTE | 2017-12-26 06:30 | NUR ---
5 ML RESIDUAL ON G-TUBE, DUE MEDS ADMINISTERED, NO EPISODE OF VOMITING NOTED AFTER PROTONIX WAS GIVEN, NO SEIZURE EPISODE, PT AWAKE, CALM AT THIS TIME, IVF INFUSING WELL, MONITORED CLOSELY.
[2017-12-26 06:33] LABS: HEMATOCRIT 33.6 % (36-52); HEMOGLOBIN 11.2 g/dL (12.0-18.0); MEAN CORPUSCULAR HEMOGLOBIN 28 pg (27-31); MEAN CORPUSCULAR HGB CONC 33 g/dL (33-37); MEAN CORPUSCULAR VOLUME 84 fL (80-94); PLATELET COUNT (AUTO) 403 K/uL (140-450); RED BLOOD CELL COUNT(AUTO) 4.02 MIL/uL (4.20-6.10); RED CELL DISTRIBUTION WIDTH 17.4 % (11.6-13.7); WHITE BLOOD COUNT (AUTO) 19.9 K/uL (4.8-10.8)
[2017-12-26 06:49] LABS: ANION GAP 11.7 (8-16); CARBON DIOXIDE 21.9 mmol/L (21-32); CREATININE 0.4 mg/dL (0.7-1.3); MAGNESIUM 1.5 mg/dL (1.8-2.4); PHOSPHORUS 2.9 mg/dL (2.5-4.9); POTASSIUM 3.6 mmol/L (3.5-5.1)
[2017-12-26 07:20] LABS: LYMPHOCYTES % (MANUAL) 6 % (20-46); MONOCYTES % (MANUAL) 5 % (5-12)
[2017-12-26 07:21] LABS: EOSINOPHILS % (MANUAL) 2 % (0-4)
--- NOTE | 2017-12-26 07:25 | NUR ---
PT AWAKE, NO SIGNS OF DISTRESS, REPORT GIVEN TO MELBA FOR CONTINUITY OF CARE.
[2017-12-26 08:00] VITALS: BP 102/67
--- NOTE | 2017-12-26 08:00 | NUR ---
RECEIVED REPORT FROM JOSE WOOD FOR CONTINUITY OF CARE. PATIENT AWAKE NON-VERBAL UNABLE TO FOLLOW COMMAND DUE TO MENTALLY CHALLENGE. NO S/S OF RESP DISTRESS NOTED NO DISCOMFORT NOTED. PATIENT IS BED BOUND , INCONTINENT DERMATITIS NOTED ON PERINEAL AREA. WILL REPOSITION Q 2 HRS TO PREVENT SKIN BREAKDOWN , G-TUBE SITE INTACT AND CLEAN FEEDING WAS HELD UNTIL GI DR SEEN THE PATIENT. NO VOMITING AT THIS TIME. IV SITE RT IJ INTACT AND PATENT IVF INFUSING WELL. PLAN OF CARE DISCUSSED WITH THE PATIENT VITALS STABLE WILL CONTINUE TO MONITOR.
[2017-12-26] MEDS: CHOLESTYRAMINE 4 GM/9 GM PKT GT SCH ×2 (09:00→21:11)
--- NOTE | 2017-12-26 09:00 | NUR ---
NO RESIDUAL ON G-TUBE DUE MEDS GIVEN TOLERATED WELL
[2017-12-26] MEDS: POTASSIUM CHLORIDE 20% 40 MEQ/15 ML UDC GT SCH (09:52)
[2017-12-26] MEDS: PANTOPRAZOLE 40 MG INJ VIAL IVP SCH ×2 (09:52→21:12)
[2017-12-26] MEDS: OLANZapine 2.5 MG TAB GT SCH (09:53)
--- NOTE | 2017-12-26 10:00 | NUR ---
DR JAY Garcia VISITED PATIENT NEW ORDER CARRIED OUT
--- NOTE | 2017-12-26 11:00 | NUR ---
SPOKE WITH DR OBANDO UPDATED PATIENT CONDITION NO VOMITING SINCE MORNING NEW ORDER TO RESUME FEEDING AND D/C FLAGYL.
[2017-12-26] MEDS: LEVOFLOXACIN 500 MG/D5W PREMIX 100 ML IV SCH (12:06)
[2017-12-26 12:18] VITALS: BP 104/66
--- NOTE | 2017-12-26 12:30 | NUR ---
PATIENT AUNT AND UNCLE VISITED PATIENT UPDATED PATIENT CONDITION ,VITALS STABLE NO DISTRESS NOTED AT THIS TIME.
--- NOTE | 2017-12-26 14:00 | NUR ---
AWAKE WATCHING TV NO DISCOMFORT OR DISTRESS NOTED HAD BM LOOSE STOOL KEPT PATIENT CLEAN AND DRY
[2017-12-26] MEDS ORDERED: MAG SULF 2000 MG/WATER PREMIX 100 ML IV ONE (15:15)
[2017-12-26 16:00] VITALS: BP 113/71
--- NOTE | 2017-12-26 16:30 | NUR ---
CALM AND QUITE , RELAXED . VITALS STABLE AT THIS TIME
--- NOTE | 2017-12-26 18:30 | NUR ---
SAFETY MAINTAINED CALL LIGHT IN REACH STABLE CONDITION AT THIS TIME
--- NOTE | 2017-12-26 19:00 | NUR ---
RECEIVED PT FROM MELBA WOOD PT IS AAOX1 HX MENTAL RETARDATION IV ON RT JUGULAR INFUSING WELL ON TELEMETRY ST, PT DOES NOT FOLLOW COMMANDS G TUBE FEEDING WELL TOLERATED ZERO RESIDUAL REPOSITIONED INITIAL ASSESSMENT DONE
[2017-12-26 20:00] VITALS: BP 104/63
[2017-12-26] MEDS: traZODone 50 MG TAB GT SCH (21:11)
[2017-12-26] MEDS: OLANZapine 5 MG TAB GT SCH (21:12)
--- NOTE | 2017-12-26 21:56 | NUR ---
MEDIC GIVEN AND WELL TOLERATED NOT DISTRESS NOTED REPOSITIONED Q2H ON TELEMETRY ST
[2017-12-27] VITALS: BP 103/64
--- NOTE | 2017-12-27 | NUR ---
A BIG BM SPONGE BATH GIVEN LIEN CHANGED PT PULL OUT IV ON RT NECK AND A NEW IV IS INSERTED ON RT FA GAUGE #22, G TUBE FEEDING HAS BEEN WELL TOLERATED ON TELEMETRY ST
[2017-12-27] MEDS: DEXT 5% /NACL 0.9% 1,000 ML IV SCH ×3 (00:10→21:02)
[2017-12-27] MEDS: METOCLOPRAMIDE 10 MG/10 ML SYRP UDC GT SCH ×4 (00:20→17:02)
[2017-12-27] MEDS: VANCOMYCIN 1,000 MG VIAL GT SCH ×4 (00:22→17:02)
[2017-12-27] MEDS: PHARMACY COMMENTS MC SCH ×4 (00:23→17:06)
[2017-12-27] MEDS: HYDRAGUARD CREAM TP SCH ×2 (01:50→12:51)
--- NOTE | 2017-12-27 02:00 | NUR ---
PT REPOSITIONED Q2H NOT DISTRESS NOTED PT SLEEPING WELL
[2017-12-27] MEDS: LORazepam 2 MG/ML VIAL IVP PRN (03:57)
[2017-12-27 04:00] VITALS: BP 131/86
--- NOTE | 2017-12-27 04:00 | NUR ---
SPONGE BATH GIVEN LINEN CHANGED PT VERY AGITATED TRYING TO GET OUT OF BED ATIVAN WAS GIVEN ORDER. PT ON CLOSE MONITORING BED ALARM ON REPOSITIONED Q2H ON TELEMETRY ST
[2017-12-27 06:22] LABS: HEMOGLOBIN 9.8 g/dL (12.0-18.0); MEAN CORPUSCULAR HEMOGLOBIN 28 pg (27-31); MEAN CORPUSCULAR HGB CONC 33 g/dL (33-37); MEAN CORPUSCULAR VOLUME 84 fL (80-94); PLATELET COUNT (AUTO) 370 K/uL (140-450); RED BLOOD CELL COUNT(AUTO) 3.55 MIL/uL (4.20-6.10); RED CELL DISTRIBUTION WIDTH 17.5 % (11.6-13.7); WHITE BLOOD COUNT (AUTO) 12.9 K/uL (4.8-10.8)
[2017-12-27 06:29] LABS: ANION GAP 10.7 (8-16); CARBON DIOXIDE 26.1 mmol/L (21-32); CREATININE 0.6 mg/dL (0.7-1.3); POTASSIUM 3.8 mmol/L (3.5-5.1)
--- NOTE | 2017-12-27 06:30 | NUR ---
PT PULL OUT IV AND RASHEEDA FROM ER INSERTED A NEW IV ON LEFT HAND GAUGE #20, PT SLEEPING AFTER ATIVAN GIVEN FOR AGITATION AND TRYING TO GET OUT OF BED
[2017-12-27 07:01] LABS: EOSINOPHILS % (MANUAL) 1 % (0-4); LYMPHOCYTES % (MANUAL) 7 % (20-46); MONOCYTES % (MANUAL) 5 % (5-12)
--- NOTE | 2017-12-27 07:30 | NUR ---
RECEIVED PT FROM CHART WRITER RN, CAITLYN. PT IS SLEEPING AT THIS TIME. BREATHING EVEN AND UNLABORED. NO S/S OF ACUTE DISTRESS. IV NOTED ON THE LEFT HAND 20G, ASYMPTOMATIC, INFUSING D5NS AT 100ML/HR. ON TELEMETRY. G TUBE RESIDUAL 10ML. FEEDING TOLERATED WELL TOLERATED. REPOSITIONED, INITIAL ASSESSMENT DONE. BED ALARM ON, SEIZURE AND FALL PRECAUTIONS MET. WILL CONTINUE TO MONITOR.
[2017-12-27 08:00] VITALS: BP 126/67
--- NOTE | 2017-12-27 09:45 | NUR ---
0ML RESIDUAL IN G TUBE. MEDS GIVEN VIA G TUBE BY GRAVITY. PT TOLERATED WELL.
[2017-12-27] MEDS: POTASSIUM CHLORIDE 20% 40 MEQ/15 ML UDC GT SCH (09:52)
[2017-12-27] MEDS: CHOLESTYRAMINE 4 GM/9 GM PKT GT SCH ×2 (09:52→21:03)
[2017-12-27] MEDS: OLANZapine 2.5 MG TAB GT SCH (09:52)
[2017-12-27] MEDS: PANTOPRAZOLE 40 MG INJ VIAL IVP SCH ×2 (09:52→21:03)
--- NOTE | 2017-12-27 10:00 | NUR ---
BM NOTED. BROWN BLACK SOFT STOOL, PER TANKERMAN THE STOOL IS MORE BROWN AND LESS BLACK THAN YESTERDAY. REDNESS NOTED ON THE REYES AREA, HYDRAGUARD APPLIED. CHUX CHANGED. PT HAS BEEN REPOSITIONED BY TANKERMAN.
[2017-12-27] MEDS: LEVOFLOXACIN 500 MG/D5W PREMIX 100 ML IV SCH (11:24)
[2017-12-27 12:00] VITALS: BP 134/82
--- NOTE | 2017-12-27 12:00 | NUR ---
BROWN-YELLOWISH LOOSE STOOL, CLEANED PT, APPLIED HYDRAGUARD TO REYES AREA. REPOSITIONED PT.
--- NOTE | 2017-12-27 14:26 | NUR ---
12/27/17 RD FOLLOW UP COMPLETED. PLEASE REFER TO NUTRITION ASSESSMENT UNDER CARE ACTIVITY FOR ESTIMATED NUTRITIONAL NEEDS. PT RECEIVING ENTERAL NUTRITION SUPPORT: CURRENT TUBE FEED PROVIDES 1296 KCALS AND 59 GM PRO PER DAY TO MEET 130% EST ENERGY NEEDS AND 118% EST PRO NEEDS PER DAY. RD TO FOLLOW-UP IN 2-3 DAYS PATIENT IS HIGH RISK. ELOY FELIPE, RD
--- NOTE | 2017-12-27 14:30 | NUR ---
NEW FEEDING BAG ADMINISTERED, TUBING CHANGED. ORAL CARE PROVIDED. PT TOLERATED WELL.
[2017-12-27 16:00] VITALS: BP 138/85
--- NOTE | 2017-12-27 16:00 | NUR ---
PT HAD LOOSE BROWN STOOL. CLEAN PT AND CHANGED CHUX. HYDRAGUARD APPLIED TO REYES AREA. REPOSITIONED PT.
--- NOTE | 2017-12-27 19:30 | NUR ---
ENDORSE PT TO CONTINUOUS MINING MACHINE OPERATOR RN. PT IS IN STABLE CONDITION.
--- NOTE | 2017-12-27 19:31 | NUR ---
RECEIVED REPORT FROM DAY SHIFT NURSE. 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 20G IV TO LEFT HAND, INFUSING D5NS@100ML/HR. PT IS UNABLE TO AMBULATE. PT HAS INCONTINENT DERMATITIS BUT SKIN IS INTACT. GTUBE IN PLACE WITH ISOSOURCE RUNNING AT 36ML/HR. GEIGER CATHETER IN PLACE WITH CLEAR, YELLOW URINE IN BAG. UPDATED BOARD. VITAL SIGNS WITHIN NORMAL LIMITS. PT IN STABLE CONDITION, NO SIGNS OF DISTRESS NOTED. BED IN LOWEST POSITION, CALL LIGHT WITHIN REACH. WILL CONTINUE TO MONITOR.
[2017-12-27 19:44] VITALS: BP 128/83
[2017-12-27] MEDS: OLANZapine 5 MG TAB GT SCH (21:03)
[2017-12-27] MEDS: traZODone 50 MG TAB GT SCH (21:03)
--- NOTE | 2017-12-27 21:10 | NUR ---
ADMINISTERED SCHEDULED MEDICATIONS, PT TOLERATED WELL. NO RESIDUAL FROM GTUBE, FLUSHED WITH 30MLS WATER. VITAL SIGNS WITHIN NORMAL LIMITS. PT IN STABLE CONDITION, NO SIGNS OF DISTRESS NOTED. BED IN LOWEST POSITION, CALL LIGHT WITHIN REACH. WILL CONTINUE TO MONITOR.
[2017-12-28] VITALS: BP 149/92
[2017-12-28] MEDS: HYDRAGUARD CREAM TP SCH ×2 (00:09→12:24)
[2017-12-28] MEDS: METOCLOPRAMIDE 10 MG/10 ML SYRP UDC GT SCH ×4 (00:09→18:03)
[2017-12-28] MEDS: PHARMACY COMMENTS MC SCH ×5 (00:09→23:05)
[2017-12-28] MEDS: VANCOMYCIN 1,000 MG VIAL GT SCH ×5 (00:09→23:05)
--- NOTE | 2017-12-28 00:10 | NUR ---
ADMINISTERED SCHEDULED MEDICATIONS, PT TOLERATED WELL. NO RESIDUAL FROM GTUBE, FLUSHED WITH 30MLS WATER. BP SLIGHTLY ELEVATED AT 149/92, OTHERWISE VITAL SIGNS WITHIN NORMAL LIMITS. PT IN STABLE CONDITION, NO SIGNS OF DISTRESS NOTED. BED IN LOWEST POSITION, CALL LIGHT WITHIN REACH. WILL CONTINUE TO MONITOR.
[2017-12-28 04:00] VITALS: BP 126/84
--- NOTE | 2017-12-28 04:00 | NUR ---
VITAL SIGNS WITHIN NORMAL LIMITS. PT IN STABLE CONDITION, NO SIGNS OF DISTRESS NOTED. BED IN LOWEST POSITION, CALL LIGHT WITHIN REACH. WILL CONTINUE TO MONITOR.
[2017-12-28 05:54] LABS: BASOPHILS # (AUTO) 0.1 K/uL (0.00-0.22); BASOPHILS % (AUTO) 1.3 % (0.0-2.0); EOSINOPHILS # (AUTO) 0.5 K/uL (0-0.4); EOSINOPHILS % (AUTO) 5.2 % (0.0-4.0); HEMATOCRIT 30.9 % (36-52); HEMOGLOBIN 10.1 g/dL (12.0-18.0); LYMPHOCYTES # (AUTO) 1.6 K/uL (2.0-11.5); LYMPHOCYTES % (AUTO) 14.9 % (20.5-51.1); MEAN CORPUSCULAR HEMOGLOBIN 28 pg (27-31); MEAN CORPUSCULAR HGB CONC 33 g/dL (33-37); MEAN CORPUSCULAR VOLUME 85 fL (80-94); MONOCYTES # (AUTO) 0.8 K/uL (0.8-1.0); MONOCYTES % (AUTO) 7.2 % (1.7-9.3); NEUTROPHILS # (AUTO) 7.6 K/uL (1.8-7.7); NEUTROPHILS % (AUTO) 71.4 % (42.2-75.2); PLATELET COUNT (AUTO) 400 K/uL (140-450); RED BLOOD CELL COUNT(AUTO) 3.65 MIL/uL (4.20-6.10); RED CELL DISTRIBUTION WIDTH 18.1 % (11.6-13.7); WHITE BLOOD COUNT (AUTO) 10.6 K/uL (4.8-10.8)
[2017-12-28] MEDS: DEXT 5% /NACL 0.9% 1,000 ML IV SCH ×2 (06:24→16:42)
[2017-12-28 06:26] LABS: ANION GAP 11.2 (8-16); CARBON DIOXIDE 23.4 mmol/L (21-32); CREATININE 0.5 mg/dL (0.7-1.3); POTASSIUM 3.6 mmol/L (3.5-5.1)
--- NOTE | 2017-12-28 07:31 | NUR ---
ENDORSED PT IN STABLE CONDITION TO DAY SHIFT NURSE FOR CONTINUITY OF CARE.
--- NOTE | 2017-12-28 07:35 | NUR ---
RECEIVED PATIENT REPORT AT BEDSIDE FROM NIGHT NURSE. PATIENT IS APHASIC AND SHOWS NO S/S OF ACUTE DISTRESS ON ROOM AIR.FLACC-0. IV NOTED ON THE LEFT HAND WITH IVF'S INFUSING WELL. SKIN INTACT WITH NOTED REDNESS AT SACRAL AREA. PATIENT WAS EXPLAINED POC FOR TODAY HOWEVER IS UNABLE TO COMPREHEND, GEIGER CATHETER DRAINING CLEAR YELLOW URINE, SCD'S IN PLACE, G-TUBE FEEDING INFUSING WELL. ALL NEEDS MET AT THIS TIME. BED IN LOW POSITION, CALL LIGHT WITHIN REACH, CONTACT, SEIZURES, AND SAFETY PRECAUTIONS IN PLACE.
[2017-12-28 08:10] VITALS: BP 144/100
[2017-12-28] MEDS: CHOLESTYRAMINE 4 GM/9 GM PKT GT SCH ×2 (09:09→20:45)
[2017-12-28] MEDS: OLANZapine 2.5 MG TAB GT SCH (09:09)
[2017-12-28] MEDS: PANTOPRAZOLE 40 MG INJ VIAL IVP SCH ×2 (09:09→20:51)
[2017-12-28] MEDS: POTASSIUM CHLORIDE 20% 40 MEQ/15 ML UDC GT SCH (09:09)
--- NOTE | 2017-12-28 09:10 | NUR ---
TF WAS HELD, HOB ELEVATED AT 45 DEGREES, G-TUBE WAS ASPIRATED WITH NO RESIDUAL. PATIENT WAS GIVEN SCHEDULED MEDICATIONS, MEDICATIONS WERE CRUSHED INDIVIDUALLY AND GIVEN WITH 10CC OF STERILE WATER, AFTER ADMINISTRATION OF MEDICATIONS 30 CC OF STERILE WATER WAS FLUSHED THROUGH THE G-TUBE.
[2017-12-28] MEDS: LEVOFLOXACIN 500 MG/D5W PREMIX 100 ML IV SCH (11:53)
[2017-12-28 12:00] VITALS: BP 128/90
--- NOTE | 2017-12-28 14:30 | NUR ---
TOMMY OBJECTS CONSERVATOR AT [facility], BOARDING CARE OF PATIENT, CAME TO UNIT AND PROVIDED PHONE NUMBER OF FACILITY [phone], ALSO HOME SCHOOL COORDINATOR PORT[facility]'S PHONE NUMBER [phone] FOR ANY F/U QUESTIONS WHEN PATIENT NEEDS TO BE DISCHARGED.
[2017-12-28 16:20] VITALS: BP 113/74
--- NOTE | 2017-12-28 19:40 | NUR ---
GAVE REPORT TO NIGHT NURSE, PATIENT ENDORSED IN STABLE CONDITION.
--- NOTE | 2017-12-28 19:41 | NUR ---
RECEIVED HANDOFF REPORT FROM AM RN. PATIENT A&OX1, APHASIC WITH HX MR, CP. IV SITE PATENT AND INTACT, GEIGER CATH PATENT AND INTACT. FLACC 0. NO SIGNS OR SYMPTOMS OF ACUTE DISTRESS NOTED. CALL LIGHT WITHIN REACH. WILL CONTINUE TO MONITOR.
[2017-12-28 20:00] VITALS: BP 118/81
[2017-12-28] MEDS: traZODone 50 MG TAB GT SCH (20:46)
[2017-12-28] MEDS: OLANZapine 5 MG TAB GT SCH (20:46)
--- NOTE | 2017-12-28 20:47 | NUR ---
PM MEDS GIVEN WITH EDUCATION. ERIC HELD PER PHARMACY. PATIENT TOLERATED WELL. 3ML RESIDUAL. NO SIGNS OR SYMPTOMS OF ACUTE DISTRESS NOTED. CALL LIGHT WITHIN REACH. WILL CONTINUE TO MONITOR.
[2017-12-29] VITALS: BP 123/80
[2017-12-29] MEDS: METOCLOPRAMIDE 10 MG/10 ML SYRP UDC GT SCH ×5 (00:09→23:21)
[2017-12-29] MEDS: HYDRAGUARD CREAM TP SCH ×2 (00:15→12:44)
[2017-12-29] MEDS: DEXT 5% /NACL 0.9% 1,000 ML IV SCH ×3 (01:51→22:10)
[2017-12-29 04:00] VITALS: BP 125/78
[2017-12-29] MEDS: PHARMACY COMMENTS MC SCH ×4 (06:00→23:21)
[2017-12-29] MEDS: VANCOMYCIN 1,000 MG VIAL GT SCH ×4 (06:00→23:21)
[2017-12-29 07:17] LABS: HEMATOCRIT 32.2 % (36-52); HEMOGLOBIN 10.6 g/dL (12.0-18.0); MEAN CORPUSCULAR HEMOGLOBIN 28 pg (27-31); MEAN CORPUSCULAR HGB CONC 33 g/dL (33-37); MEAN CORPUSCULAR VOLUME 84 fL (80-94); PLATELET COUNT (AUTO) 429 K/uL (140-450); RED BLOOD CELL COUNT(AUTO) 3.83 MIL/uL (4.20-6.10); RED CELL DISTRIBUTION WIDTH 17.8 % (11.6-13.7)
--- NOTE | 2017-12-29 07:29 | NUR ---
ENDORSED PLAN OF CARE TO AM RN. PATIENT IN STABLE.
--- NOTE | 2017-12-29 07:30 | NUR ---
RECEIVED REPORT FROM STABLEHAND NURSE JERONIMO AT BEDSIDE FOR CONTINUITY OF CARE. PT IS AWAKE BUT APHASIC. INTRODUCED SELF AND UPDATED BOARD. G-TUBE FEEDING INFUSING AT 35ML/HR. SKIN IS WARM AND DRY. IV TO L HAND 20G INFUSING D5 1/2NS @100ML/HR. LUNG SOUNDS CLEAR. PT MAINTAINED ON CONTACT PRECAUTIONS. NO SIGNS OF DISTRESS. BED IN LOW POSITION, WHEELS LOCKED, CALL LIGHT WITHIN REACH. WILL CONTINUE TO MONITOR.
[2017-12-29 07:35] LABS: ANION GAP 11.8 (8-16); CARBON DIOXIDE 22.3 mmol/L (21-32); CREATININE 0.5 mg/dL (0.7-1.3); POTASSIUM 4.1 mmol/L (3.5-5.1)
[2017-12-29 08:00] VITALS: BP 137/84
[2017-12-29 09:20] LABS: LYMPHOCYTES % (MANUAL) 6 % (20-46); MONOCYTES % (MANUAL) 2 % (5-12)
[2017-12-29] MEDS: POTASSIUM CHLORIDE 20% 40 MEQ/15 ML UDC GT SCH (10:10)
[2017-12-29] MEDS: PANTOPRAZOLE 40 MG INJ VIAL IVP SCH ×2 (10:10→20:29)
[2017-12-29] MEDS: OLANZapine 2.5 MG TAB GT SCH (10:10)
[2017-12-29] MEDS: CHOLESTYRAMINE 4 GM/9 GM PKT GT SCH ×2 (10:10→20:29)
--- NOTE | 2017-12-29 10:17 | NUR ---
12/29/17 RD FOLLOW UP COMPLETED PLEASE REFER TO NUTRITION PROGRESS NOTE UNDER CARE ACTIVITY FOR ESTIMATED NUTRITION NEEDS. RD RECOMMENDATIONS: 1.CONTINUE ON CURRENT TUBE FEED OF ISOSOURCE 1.5 AT 36 ML/HR PROVIDES 1296 KCALS AND 59 GM PRO PER DAY TO MEET 111% EST ENERGY NEEDS AND 118% EST PRO NEEDS PER DAY. 2.RECOMMEND VIT C AND THERAGRAN FOR SKIN INTEGRITY. 3.RD TO FOLLOW-UP IN 2-3 DAYS; PATIENT IS HIGH RISK. FRANCOIS ORDONEZ MS, RDN
[2017-12-29] MEDS: LEVOFLOXACIN 500 MG/D5W PREMIX 100 ML IV SCH (11:33)
[2017-12-29 12:00] VITALS: BP 136/82
--- NOTE | 2017-12-29 12:00 | NUR ---
CHECKED G-TUBE RESIDUAL. 0ML NOTED. FREE WATER FLUSH 250ML. PT TOLERATED WELL. ADMINISTERED SCHEDULED MEDS. PT LYING IN BED, AWAKE AND NON VERBAL. BED IN LOW POSITION, CALL LIGHT WITHIN REACH. WILL CONTINUE TO MONITOR.
[2017-12-29 16:00] VITALS: BP 122/72
--- NOTE | 2017-12-29 16:00 | NUR ---
PT'S FAMILY CAME TO VISIT. NO SIGNS OF DISTRESS. WILL CONTINUE TO MONITOR.
--- NOTE | 2017-12-29 18:00 | NUR ---
CHECKED G-TUBE RESIDUAL 0ML. NOTED FREE WATER FLUSH 250ML. CONTINUED ISOSOURCE FEEDING AT 36ML/HR. ADMINISTERED SCHEDULED MEDS VIA G-TUBE. PT TOLERATED WELL. NO SIGNS OF DISTRESS. WILL CONTINUE TO MONITOR.
--- NOTE | 2017-12-29 19:28 | NUR ---
ENDORSED PT TO FULLING MILL OPERATOR NURSE JOSE AT BEDSIDE FOR CONTINUITY OF CARE. PT IN STABLE CONDITION.
--- NOTE | 2017-12-29 19:30 | NUR ---
RECEIVED PT AWAKE, APHASIC, VITAL SIGNS STABLE, ST WITH 108 BPM, AFEBRILE, IVF INFUSING WELL, G-TUBE FEEDING ON-GOING, HOB ELEVATED AT ALL TIMES, GEIGER CATHETER IN PLACE WITH YELLOW OUTPUT, MAINTAIN ON CONTACT ISOLATION FOR C-DIFF, REPOSITION Q2H AND OFFLOAD PRESSURE AREAS, NEEDS ANTICIPATED, CALL LIGHT WITHIN REACH.
[2017-12-29 20:00] VITALS: BP 111/74
[2017-12-29] MEDS: OLANZapine 5 MG TAB GT SCH (20:28)
[2017-12-29] MEDS: traZODone 50 MG TAB GT SCH (20:29)
--- NOTE | 2017-12-29 20:35 | NUR ---
5ML G-TUBE RESIDUAL NOTED, DUE MEDS ADMINISTERED, REPOSITIONED AND OFFLOAD PRESSURE AREAS, ATTEMPT TO SUCTION ORALLY BUT PT BITING THE YANKAUER, UNABLE TO FOLLOW COMMAND, NO NAUSEA/VOMITING OR SOB NOTED, HOB ELEVATED AT ALL TIMES, MONITORED CLOSELY.
--- NOTE | 2017-12-29 23:30 | NUR ---
PT SLEEPING, OPEN EYES TO TOUCH, VITAL SIGNS STABLE, FLACC-0, RESPIRATION EVEN AND UNLABORED, DUE MEDS ADMINISTERED, IVF INFUSING WELL, CONTINUE TO MONITOR CLOSELY.
[2017-12-30] VITALS: BP 123/79
[2017-12-30] MEDS: HYDRAGUARD CREAM TP SCH ×2 (00:01→14:00)
[2017-12-30 04:00] VITALS: BP 109/70
--- NOTE | 2017-12-30 04:00 | NUR ---
PT SLEEPING, OPEN EYES TO TOUCH, VITAL SIGNS STABLE, NO SIGNS OF DISTRESS OR PAIN, MONITORED CLOSELY.
[2017-12-30] MEDS: metroNIDAZOLE 500 MG/NS PREMIX 100 ML IV SCH ×2 (04:09→13:00)
[2017-12-30] MEDS: METOCLOPRAMIDE 10 MG/10 ML SYRP UDC GT SCH ×2 (05:08→12:16)
[2017-12-30] MEDS: DEXT 5% /NACL 0.9% 1,000 ML IV SCH ×2 (05:08→08:10)
[2017-12-30] MEDS: VANCOMYCIN 1,000 MG VIAL GT SCH ×2 (05:08→12:17)
[2017-12-30] MEDS: PHARMACY COMMENTS MC SCH ×2 (05:09→12:17)
[2017-12-30 07:24] LABS: BASOPHILS # (AUTO) 0.2 K/uL (0.00-0.22); BASOPHILS % (AUTO) 2.3 % (0.0-2.0); EOSINOPHILS # (AUTO) 0.3 K/uL (0-0.4); EOSINOPHILS % (AUTO) 2.5 % (0.0-4.0); HEMATOCRIT 32.3 % (36-52); HEMOGLOBIN 10.4 g/dL (12.0-18.0); LYMPHOCYTES # (AUTO) 1.9 K/uL (2.0-11.5); LYMPHOCYTES % (AUTO) 17.6 % (20.5-51.1); MEAN CORPUSCULAR HEMOGLOBIN 27 pg (27-31); MEAN CORPUSCULAR HGB CONC 32 g/dL (33-37); MEAN CORPUSCULAR VOLUME 85 fL (80-94); MONOCYTES # (AUTO) 0.9 K/uL (0.8-1.0); MONOCYTES % (AUTO) 8.5 % (1.7-9.3); NEUTROPHILS # (AUTO) 7.5 K/uL (1.8-7.7); NEUTROPHILS % (AUTO) 69.1 % (42.2-75.2); PLATELET COUNT (AUTO) 439 K/uL (140-450); RED CELL DISTRIBUTION WIDTH 17.6 % (11.6-13.7); WHITE BLOOD COUNT (AUTO) 10.8 K/uL (4.8-10.8)
--- NOTE | 2017-12-30 07:30 | NUR ---
PT SLEEPING, NO SIGNS OF DISTRESS, BEDSIDE REPORT GIVEN TO NINA PEPPER FOR CONTINUITY OF CARE.
--- NOTE | 2017-12-30 07:31 | NUR ---
RECEIVED REPORT FROM HEALTHCARE PROF NURSE JOSE AT BEDSIDE FOR CONTINUITY OF CARE. PT IS AWAKE AND ORIENTED. INTRODUCED SELF AND UPDATED BOARD. PT ON BIPAP FIO2 50%. O2 SAT 96%. NO SIGNS OF RESPIRATORY DISTRESS. PT DENIES PAIN. BED IN LOW POSITION, WHEELS LOCKED, CALL LIGHT WITHIN REACH. WILL CONTINUE TO MONITOR. Addendum: 12/30/17 at 0814 by Neida Hansen RN DISREGARD NOTE. WRONG PATIENT.
--- NOTE | 2017-12-30 07:32 | NUR ---
RECEIVED REPORT FROM ANDROID SOFTWARE ENGINEER NURSE JOSE AT BEDSIDE FOR CONTINUITY OF CARE. PT IS ASLEEP RIGHT NOW WITH VISIBLE RESPIRATIONS. G-TUBE FEEDING ON AT 36ML/HR. IV TO R FA 24G INFUSING D5 1/2NS @100ML/HR. NO SIGNS OF DISTRESS. BED IN LOW POSITION. WHEELS LOCKED. WILL CONTINUE TO MONITOR.
[2017-12-30 07:37] LABS: ANION GAP 10.6 (8-16); CARBON DIOXIDE 25.5 mmol/L (21-32); CREATININE 0.5 mg/dL (0.7-1.3); POTASSIUM 4.1 mmol/L (3.5-5.1)
[2017-12-30 08:00] VITALS: BP 102/68
[2017-12-30] MEDS: OLANZapine 2.5 MG TAB GT SCH (09:00)
[2017-12-30] MEDS ORDERED: VANC125C12 GT (10:51)
[2017-12-30] MEDS ORDERED: LEVO750T2 GT (10:51)
[2017-12-30] MEDS: PANTOPRAZOLE 40 MG INJ VIAL IVP SCH (11:02)
[2017-12-30] MEDS: POTASSIUM CHLORIDE 20% 40 MEQ/15 ML UDC GT SCH (11:02)
[2017-12-30] MEDS: CHOLESTYRAMINE 4 GM/9 GM PKT GT SCH (11:03)
[2017-12-30] MEDS: LEVOFLOXACIN 500 MG/D5W PREMIX 100 ML IV SCH (11:03)
[2017-12-30 12:00] VITALS: BP 130/77
--- NOTE | 2017-12-30 13:04 | NUR ---
Social Service Note: I called and spoke with it administrator of facilty where patient resides, Anny Montgomery and informed her patient will discharged today. She reported she will send a carry all driver to pick him up as soon as possible and requested patient's nurse to call their RN Tamie to give report, charge nurse Dao made aware.
--- NOTE | 2017-12-30 13:12 | NUR ---
CALLED AND GAVE REPORT TO MARGARET WOOD [phone]. GAVE APARTMENT LOCATOR TIME 2PM AND CALL BACK NUMBER.
--- NOTE | 2017-12-30 13:30 | NUR ---
CALLED JENNIFER CASE (PT'S FAMILY) [phone] AND NOTIFIED OF D/C TODAY AT 2PM TO [facility]
--- NOTE | 2017-12-30 15:00 | NUR ---
PT D/C TO GO TO [facility]. GAVE D/C FORMS, RX, INSTRUCTIONS AND FOLLOW UP APPOINTMENT TO TRANSPORTER. PT UNABLE TO SIGN FORMS. REPORT GIVEN TO NINA ROBLES. REMOVED IV FROM R FA 24G. IV CATHETER TIP INTACT. APPLIED DRESSING AND PRESSURE TO SITE. NO BLEEDING NOTED. REMOVED GEIGER CATHETER. TIP INTACT. 400ML YELLOW CLEAR URINE NOTED. REMOVED ID BAND AND TELE MONITOR. PT WITH G-TUBE IN PLACE. CHANGED IN OWN IN CLOTHES AND LEFT WITH ALL PERSONAL BELONGINGS. LEFT WITH WHEELCHAIR ACCOMPANIED BY TRANSPORTERS. LEFT IN STABLE CONDITION.
== END 2017-12-30 15:00 | DRG 720 ==
LOC: MED 13:46 → EDBD 13:46 → MIC 17:38 → MTU 12-22 18:05
PROVIDERS: ADMIT Preventive Medicine Preventive Medicine/Occupational Environmental Medicine; ATTEND Preventive Medicine Preventive Medicine/Occupational Environmental Medicine
DX: A41.9 Sepsis, unspecified organism (principal); J96.00 Acute respiratory failure, unspecified whether with hypoxia or hypercapnia; E43 Unspecified severe protein-calorie malnutrition; J18.9 Pneumonia, unspecified organism; E87.0 Hyperosmolality and hypernatremia; K51.00 Ulcerative (chronic) pancolitis without complications; E88.09 Other disorders of plasma-protein metabolism, not elsewhere classified; E86.0 Dehydration; A04.72 Enterocolitis due to Clostridium difficile, not specified as recurrent; E87.6 Hypokalemia; E83.51 Hypocalcemia; E83.42 Hypomagnesemia; F79 Unspecified intellectual disabilities; G80.9 Cerebral palsy, unspecified; G40.909 Epilepsy, unspecified, not intractable, without status epilepticus; E83.39 Other disorders of phosphorus metabolism; I51.7 Cardiomegaly; D64.9 Anemia, unspecified; E83.52 Hypercalcemia; N39.0 Urinary tract infection, site not specified; Y95 Nosocomial condition; Z81.0 Family history of intellectual disabilities; Z82.0 Family history of epilepsy and other diseases of the nervous system; R73.9 Hyperglycemia, unspecified; Z68.22 Body mass index [BMI] 22.0-22.9, adult; K92.2 Gastrointestinal hemorrhage, unspecified; Z93.1 Gastrostomy status
CPT/HCPCS: 36415; 36600; 71045; 80048; 80053; 81001; 82550; 82553; 82803; 83605; 83735; 83874; 83880; 84100; 84484; 85025; 85610; 85651; 85730; 86140; 87040; 87045; 87070; 87081; 87086; 93005; 96365; 96367; 96375; 99285; C9113; J1956; J2060; J2405; J2543; J3370; J3475; J3480; J3490; J7030; J7042; J7060; J8597; Q0092

== ENCOUNTER 2018-01-06 07:36 | Emergency (ER) | payer MEDICAID ==
[~2018-01-06] VITALS: Ht 147.3 cm; Wt 45.4 kg
[~2018-01-06 07:36] MED LIST: ACET-2619 GT; ALPR0.252 PO; LACT10SO1 GT; LEVO750T2 GT; METO5SOL19 GT; OLAN2.5T1 GT; OLAN20TA1 GT; TRAZ-286 GT; VANC125C12 GT
--- NOTE | 2018-01-06 07:38 | NUR ---
PT BIBA TO BED 10
[2018-01-06 07:46] VITALS: BP 106/73
--- NOTE | 2018-01-06 07:52 | NUR ---
PATIENT PRESENTS TO ED WITH BIB EMS FOR G-TUBE REPLACEMENT HX; SCHIZOPHRENIA RX; OLANZAPINE, IMODIUM, TRAZADONE; DENIES N/V/D; SKIN IS PINK/WARM/DRY; AAOX4 WITH EVEN AND STEADY GAIT; LUNGS CLEAR BL; HR EVEN AND REGULAR; PT DENIES ANY FEVER, CP, SOB, OR COUGH AT THIS TIME; PATIENT STATES PAIN OF 0/10 AT THIS TIME; VSS; PATIENT POSITIONED FOR COMFORT; HOB ELEVATED; BEDRAILS UP X2; BED DOWN. DR RICHTER MADE AWARE OF PT STATUS.
--- NOTE | 2018-01-06 08:11 | NUR ---
DR. RICHTER EVALUATING PT AT BEDSIDE
--- NOTE | 2018-01-06 08:46 | NUR ---
XRAY AT BEDSIDE
--- NOTE | 2018-01-06 08:52 | NUR ---
contrast inserted into nicole 14fr to gi ostomy for placement verification---x-ray at bedside
--- NOTE | 2018-01-06 09:34 | NUR ---
S/W PIPE WASHER FOR PT, AFTER DISCHARGE SHE WILL CALL FOR TRANSPORTATION BACK TO [facility] IN [place]
--- NOTE | 2018-01-06 10:03 | NUR ---
Patient discharged with v/s stable. Written and verbal after care instructions given and explained. JOCKEY AGENT TOMMY FLORES verbalized understanding. Wheel Chair Assisted with by caregiver. All questions addressed prior to discharge. Advised to follow up with PMD.
--- NOTE | 2018-01-06 10:03 | NUR ---
TRANSPORT ARRIVED FOR PT
[2018-01-06 10:04] VITALS: BP 113/77
== END 2018-01-06 10:03 | disposition home or self-care (01) ==
LOC: MED 07:36
DX: K94.20 Gastrostomy complication, unspecified (principal)
CPT/HCPCS: 74241; 99284; Q0092

== ENCOUNTER 2018-01-07 16:35 | Inpatient (IN) | payer MEDICAID ==
[~2018-01-07] VITALS: Ht 147.3 cm; Wt 38.8 kg
[2018-01-07 16:51] VITALS: BP 114/77
--- NOTE | 2018-01-07 17:03 | NUR ---
PT BIBA TO BED 1.
--- NOTE | 2018-01-07 17:10 | NUR ---
patient is a 47-year old male who was brought in by caregiver for gt malfunction. per caregiver, patient pulled gt out mid-morning. respirations are even and unlabored. no cough, dyspnea, n,v,d, fever or chills observed. observed patient's abdomen, stoma is closed. tissue is pink in color, no s/s of infections observed. awaiting md evaluation.
--- NOTE | 2018-01-07 17:33 | NUR ---
Dr. Mera at bedside for examination.
[2018-01-07] MEDS ORDERED: NACL 0.9% 1,000 ML IV ONE (17:52)
--- NOTE | 2018-01-07 18:50 | NUR ---
patient's caregiver returned to [facility], contact number is [phone].
--- NOTE | 2018-01-07 19:19 | NUR ---
report taken from Cathy WOOD
[2018-01-07] MEDS ORDERED: ONDANSETRON 4 MG/2 ML VIAL IVP PRN (19:30)
[2018-01-07] MEDS ORDERED: MORPHINE SULFATE 2 MG/ML SYR IVP PRN (19:30)
[2018-01-07] MEDS: DEXT 5% /NACL 0.9% 1,000 ML IV SCH (19:30)
[2018-01-07] MEDS ORDERED: LORazepam 2 MG/ML VIAL IVP PRN (19:30)
[2018-01-07] MEDS ORDERED: MORPHINE SULFATE 4 MG/ML SYR IVP PRN (19:30)
[2018-01-07 19:37] LABS: BASOPHILS # (AUTO) 0.1 K/uL (0.00-0.22); BASOPHILS % (AUTO) 1.5 % (0.0-2.0); EOSINOPHILS # (AUTO) 0.1 K/uL (0-0.4); EOSINOPHILS % (AUTO) 0.7 % (0.0-4.0); HEMOGLOBIN 11.2 g/dL (12.0-18.0); LYMPHOCYTES # (AUTO) 0.9 K/uL (2.0-11.5); LYMPHOCYTES % (AUTO) 11.1 % (20.5-51.1); MEAN CORPUSCULAR HEMOGLOBIN 28 pg (27-31); MEAN CORPUSCULAR HGB CONC 32 g/dL (33-37); MEAN CORPUSCULAR VOLUME 87 fL (80-94); MONOCYTES # (AUTO) 0.5 K/uL (0.8-1.0); MONOCYTES % (AUTO) 6.5 % (1.7-9.3); NEUTROPHILS # (AUTO) 6.3 K/uL (1.8-7.7); NEUTROPHILS % (AUTO) 80.2 % (42.2-75.2); PLATELET COUNT (AUTO) 320 K/uL (140-450); RED BLOOD CELL COUNT(AUTO) 4.03 MIL/uL (4.20-6.10); RED CELL DISTRIBUTION WIDTH 20.2 % (11.6-13.7); WHITE BLOOD COUNT (AUTO) 7.9 K/uL (4.8-10.8)
--- NOTE | 2018-01-07 20:17 | NUR ---
Pt escorted to floor via karla with Vishal WOOD
--- NOTE | 2018-01-07 20:23 | NUR ---
Report given to and care transfered to [facility]
--- NOTE | 2018-01-07 20:30 | NUR ---
RECEIVED FROM ER PER NIKOLAS AWAKE AND ALERT. MENTALLY CHALLENGED PT. DX. OF GT MALFUNCTION. IVF SITE TO RIGHT HAND. NEEDS WILL BE ANTICIPATED AND WILL BE MET. CTAB. NO EDEMA. CALL LIGHT WITH IN REACH. CARE PLANS DISCUSSED WITH HIM. NON-VERBAL AT THIS TIME. UNABLE TO ASSESS IF HE TALKS. BED ON LOWEST POSITION. BED ALARM ON.
--- NOTE | 2018-01-07 20:36 | NUR ---
IV of NS stopped at 2014. 100ml transfused.
[2018-01-07 20:42] LABS: BILIRUBIN,URINE NEGATIVE (NEGATIVE); BLOOD, URINE NEGATIVE (NEGATIVE); COLOR,URINE YELLOW (YELLOW); LEUKOCYTE ESTERASE ,URINE NEGATIVE (NEGATIVE); NITRITE, URINE NEGATIVE (NEGATIVE); UGLUCOSE NEGATIVE (NEGATIVE)
[2018-01-07 20:50] LABS: APPEARANCE,URINE CLEAR (CLEAR)
[2018-01-07 20:57] LABS: CARBON DIOXIDE 26.5 mmol/L (21-32); POTASSIUM 3.5 mmol/L (3.5-5.1)
[2018-01-07 20:58] LABS: CREATININE 0.8 mg/dL (0.7-1.3); TOTAL BILIRUBIN 0.7 mg/dL (0.0-1.0)
[2018-01-07 20:59] LABS: ALBUMIN 2.6 g/dL (3.4-5.0)
[2018-01-07] MEDS ORDERED: LEVOFLOXACIN 500 MG/D5W PREMIX 100 ML IV SCH (21:30)
[2018-01-07 21:50] VITALS: BP 120/73
--- NOTE | 2018-01-07 21:53 | NUR ---
PT. AWAKE AND WANTING TO GET OUT OF BED TO WALK. PER OUTDOOR STUDIES PROFESSOR AT HIS FACILITY WHERE HE LIVES THAT PT. WOULD START WANDERING AND WON'T LISTEN. ENCOURAGED TO STAY IN BED WITH BED ALARM. ENCOURAGED TO SLEEP. TRYING TO BITE ON HIS IVF TUBING AND STILL WANTING TO GET OUT OF BED. WILL MONITOR CLOSELY.
[2018-01-08] MEDS ORDERED: VANCOMYCIN HCL 250 MG GT SCH
[2018-01-08 00:44] VITALS: BP 111/67
--- NOTE | 2018-01-08 01:36 | NUR ---
PT. SLEEPING BUT WAKES UP EASILY WHEN TOUCHED. DRESSING TO LEFT WRIST INTACT.WOUND CARE DONE. COVERED WITH TRANSPARENT DRESSING.
--- NOTE | 2018-01-08 03:46 | NUR ---
PT. FINALLY WENT TO SLEEP. CALL LIGHT AND BED ALARM IN PLACE. 02 SAT 95% ROOM AIR.
--- NOTE | 2018-01-08 04:30 | NUR ---
AM CARE GIVEN BY CNAS. KEPT CLEAN AND DRY. INCONTINENT TO B AND B. IVF SITE TO LEFT HAND INTACT AND NO INFILTRATION NOTED.
[2018-01-08] MEDS: DEXT 5% /NACL 0.9% 1,000 ML IV SCH ×2 (05:30→17:30)
[2018-01-08 05:32] VITALS: BP 119/76
--- NOTE | 2018-01-08 06:40 | NUR ---
AGILE BUSINESS ANALYST IN HERE TO GET BLOOD SPECIMEN. WOKE UP. WENT BACK TO SLEEP.
--- NOTE | 2018-01-08 07:13 | NUR ---
ASSUMED CONTINUITY OF CARE. NO SIGNS AND SYMPTOMS OF ACUTE DISTRESS NOTED. INITIAL ASSESSMENT DONE. RE-ORIENTED TO EVENTS AND SURROUNDINGS. KEEP COMFORTABLE ON BED. SEIZURE AND FALL PRECAUTION APPLIED. CALL LIGHT WITHIN REACH.
[2018-01-08 07:27] LABS: BASOPHILS # (AUTO) 0.1 K/uL (0.00-0.22); BASOPHILS % (AUTO) 0.8 % (0.0-2.0); EOSINOPHILS % (AUTO) 0.5 % (0.0-4.0); HEMOGLOBIN 10.6 g/dL (12.0-18.0); LYMPHOCYTES # (AUTO) 0.6 K/uL (2.0-11.5); LYMPHOCYTES % (AUTO) 6.9 % (20.5-51.1); MEAN CORPUSCULAR HEMOGLOBIN 29 pg (27-31); MEAN CORPUSCULAR HGB CONC 33 g/dL (33-37); MEAN CORPUSCULAR VOLUME 87 fL (80-94); MONOCYTES # (AUTO) 0.4 K/uL (0.8-1.0); NEUTROPHILS # (AUTO) 7.8 K/uL (1.8-7.7); NEUTROPHILS % (AUTO) 86.8 % (42.2-75.2); PLATELET COUNT (AUTO) 284 K/uL (140-450); RED BLOOD CELL COUNT(AUTO) 3.68 MIL/uL (4.20-6.10); RED CELL DISTRIBUTION WIDTH 19.9 % (11.6-13.7); WHITE BLOOD COUNT (AUTO) 8.9 K/uL (4.8-10.8)
[2018-01-08 07:53] LABS: ANION GAP 14.7 (8-16); CARBON DIOXIDE 24.4 mmol/L (21-32); CREATININE 0.7 mg/dL (0.7-1.3); POTASSIUM 4.1 mmol/L (3.5-5.1)
[2018-01-08 08:00] VITALS: BP 112/74
--- NOTE | 2018-01-08 08:53 | NUR ---
PATIENT HAS BEEN SCREENED AND CATEGORIZED HIGH NUTRITION RISK. PATIENT WILL BE SEEN WITHIN 1-2 DAYS OF ADMISSION. 01/07/18-01/08/[address]
[2018-01-08 12:00] VITALS: BP 122/82
--- NOTE | 2018-01-08 13:05 | NUR ---
DR. THOMPSON, CA[facility] CAME, REVIEWED PT. CHART AND SEEN PT..
--- NOTE | 2018-01-08 16:00 | NUR ---
DR. EVANS CAME AND SEEN PT.. DR. EVANS ORDERED TO GIVE PT. MORPHINE 4 MG IVP NOW. INFORMED CHARGE NURSE JAZMÍN PARK.
--- NOTE | 2018-01-08 16:08 | NUR ---
DR. EVANS STARTED BEDSIDE PROCEDURE OF GT PLACEMENT WITH ASSISTANCE FROM OR NURSE DU. INFORMED CHARGE NURSE JAZMÍN PARK.
--- NOTE | 2018-01-08 16:13 | NUR ---
01/08/2018 RD INITIAL ASSESSMENT COMPLETED PLEASE REFER TO NUTRITION ASSESSMENT UNDER CARE ACTIVITY FOR ESTIMATED NUTRITIONAL NEEDS. CONTINUE NPO MEDICALLY NECESSARY CONSIDER FIBERSOURCE HN @ 40 ML PER HR X 24 HRS. THIS WILL PROVIDE 1152 KCAL AND 52 G PRO PER DAY, TO MEET 98% EST KCAL AND 111% EST PRO NEEDS PER DAY. RD TO FOLLOW-UP IN 2-3 DAYS PATIENT IS HIGH RISK. ELOY FELIPE RD
[2018-01-08] MEDS ORDERED: MAGNESIUM HYDROXIDE 2400 MG/30 ML UDC PO SCH (16:45)
--- NOTE | 2018-01-08 16:50 | NUR ---
CALLED [facility] AND INFORMED THAT DR. EVANS PUT GT PLACEMENT ON BEDSIDE AND PER DR. EVANS APPLY BILATERAL SOFT WRIST RESTRAINT. GOT T.O. OF APPLICATION BILATERAL SOFT WRIST RESTRAINT, RESUMED GT FEEDING IF RADIOLOGY COMES BACK NORMAL, AND CALL FACILITY FOR TYPE OF GT FORMULA AND RATE, READ BACK AND VERIFIED. INFORMED CHARGE NURSE JAZMÍN PARK.
--- NOTE | 2018-01-08 17:25 | NUR ---
CALLED [facility] AND [facility]KE [facility] REPRESENT[facility] REGARDING PT. GT FEEDING FORMULA. PER [facility] REPRESENTATIVE PT. GETTING ISOSOURCE 1.5 AT 63 ML/HR FOR 14 HOURS TO RUN AT 1400 TO 0400. INFORMED CHARGE NURSE JAZMÍN FLORES -NINA.
--- NOTE | 2018-01-08 17:40 | NUR ---
CALLED DR. EVANS AT INFORMED RESULT OF XR ABD THAT WAS DONE AT 1704 AND READ IMPRESSION VIA PHONE. GOT TELEPHONE ORDER FROM DR. EVANS THAT GT CAN BE USE AND RESUME GT FEEDING. INFORMED CHARGE NURSE JAZMÍN PARK.
--- NOTE | 2018-01-08 18:15 | NUR ---
INSERTED IV ON RIGHT HAND GAUGE #24. TOLERATED WELL. NO DISCOMFORT NOTICED.
[2018-01-08 18:30] VITALS: BP 125/81
--- NOTE | 2018-01-08 18:55 | NUR ---
ASKED BELT PRESS OPERATOR -YANNA FOR GT FEEDING PUMP.
--- NOTE | 2018-01-08 19:18 | NUR ---
BEDSIDE REPORT GIVEN TO LENNY PARK. IVF INFUSING WELL. IN STABLE CONDITION. ALSO ENDORSED ABOUT MD ORDER OF GT FEEDING.
--- NOTE | 2018-01-08 19:25 | NUR ---
RECEIVED REPORT FROM DAY SHIFT NURSE, PATIENT RESTING IN BED, AWAKE BUT APHASIC, NO S/S OF DISTRESS NOTED, RESPIRATION EVEN AND UNLABORED, IV PATENT AND INTACT, INFUSING D5NS AT 50ML/HR. G-TUBE IN PLACE, CLEAN AND INTACT, SOFT WRIST RESTRAINS APPLIED ON BOTH WRISTS, ASSESSED BOTH WRISTS AND HANDS CIRCULATIONS, CAP-REFILL LESS THAN 3 SECONDS. HEAD OF BED ELEVATED, SAFETY MEASURE ENSURED, WILL CONTINUE TO MONITOR.
[2018-01-08] MEDS: LACTULOSE 20 GM/30 ML UDC PO SCH (21:03)
[2018-01-08] MEDS: busPIRone 5 MG TAB PO SCH (21:03)
--- NOTE | 2018-01-08 21:50 | NUR ---
NON-BLANCHABLE ERYTHEMA NOTED ABOVE THE LT SIDE OF THE BUTTOCK, SKIN INTACT, CLEAN, AND DRY, CHARGE NURSE MADE AWARE, WOUND CONSULT WILL BE ORDERED STANDARD POLICY, REPOSITIONED PATIENT TO HIS RT SIDE, HEAD OF BED ELEVATED, NON-RESIDUAL NOTED, RESTRAIN ASSESSMENT DONE, CAP-REFILL WITHIN 3 SECONDS. SAFETY MEASURE ENSURED, WILL CONTINUE TO MONITOR. Addendum: 01/09/18 at 0225 by Mike Lanier RN OPTIFOAM APPLIED ON THE ERYTHEMA AREA
--- NOTE | 2018-01-08 23:23 | NUR ---
HYDRAGUARD ORDERED STANDARD ORDER, CHARGE NURSE IS AWARE .
--- NOTE | 2018-01-08 23:47 | NUR ---
PATIENT TURNED HIMSELF BACK TO SUPINE POSITION, REPOSITIONED PATIENT WITH THE [employer] CHEMISTRY TEACHER, HEAD OF BED ELEVATED, SAFETY MEASURE ENSURED, WILL CONTINUE TO MONITOR.
[2018-01-09] VITALS: BP 116/77
[2018-01-09] MEDS: HYDRAGUARD CREAM TP SCH ×2 (01:00→13:38)
--- NOTE | 2018-01-09 02:05 | NUR ---
LARGE AMOUNT OF BOWEL MOVEMENT NOTED, CLEANED THE PATIENT AND REPOSITIONED PATIENT WITH THE INDUSTRIAL PHOTOGRAPHER, RESTRAIN ASSESSMENT DONE, CAP RE-FILL WITHIN 3 SECONDS, HEAD OF BED ELEVATED, SAFETY MEASURE ENSURED, WILL CONTINUE TO MONITOR.
--- NOTE | 2018-01-09 04:00 | NUR ---
REPOSITIONED PATIENT TO HIS RIGHT SIDE, BECAUSE FOUND PATIENT ON SUPINE POSITION, NO S/S OF DISTRESS NOTED, RESPIRATION EVEN AND UNLABORED, HEAD OF BED ELEVATED, RESTRAIN ASSESSMENT DONE, CAP-REFILL WITHIN 3 SECONDS, CALL LIGHT WITHIN REACH, SAFETY MEASURE ENSURED, WILL CONTINUE TO MONITOR.
--- NOTE | 2018-01-09 05:25 | NUR ---
PATIENT WAS REPOSITIONED TO HIS RIGHT SIDE, PATIENT TURNED HIMSELF TO SUPINE POSITION. ANOTHER LARGE AMOUNT OF BOWEL MOVEMENT NOTED, CLEANED THE PATIENT AND REPOSITIONED PATIENT TO HIS RIGHT SIDE, AND PLACED A PILLOW UNDER HIS LEFT HIP, RESTRAIN ASSESSMENT DONE, CAP RE-FILL WITHIN 3 SECONDS, HEAD OF BED ELEVATED, SAFETY MEASURE ENSURED, WILL CONTINUE TO MONITOR.
[2018-01-09 06:14] LABS: BASOPHILS # (AUTO) 0.1 K/uL (0.00-0.22); EOSINOPHILS # (AUTO) 0.1 K/uL (0-0.4); MEAN CORPUSCULAR VOLUME 88 fL (80-94)
[2018-01-09 06:26] LABS: HEMATOCRIT 32.3 % (36-52); HEMOGLOBIN 10.5 g/dL (12.0-18.0); LYMPHOCYTES # (AUTO) 0.9 K/uL (2.0-11.5); MEAN CORPUSCULAR HEMOGLOBIN 29 pg (27-31); MEAN CORPUSCULAR HGB CONC 33 g/dL (33-37); MONOCYTES # (AUTO) 0.9 K/uL (0.8-1.0); MONOCYTES % (AUTO) 8.8 % (1.7-9.3); NEUTROPHILS # (AUTO) 8.2 K/uL (1.8-7.7); NEUTROPHILS % (AUTO) 80.2 % (42.2-75.2); PLATELET COUNT (AUTO) 270 K/uL (140-450); RED BLOOD CELL COUNT(AUTO) 3.67 MIL/uL (4.20-6.10); WHITE BLOOD COUNT (AUTO) 10.2 K/uL (4.8-10.8)
[2018-01-09 07:09] LABS: CARBON DIOXIDE 28.3 mmol/L (21-32); CREATININE 0.6 mg/dL (0.7-1.3); POTASSIUM 3.3 mmol/L (3.5-5.1)
--- NOTE | 2018-01-09 07:35 | NUR ---
ENDORSED PLAN OF CARE TO DAY SHIFT RN, PATIENT RESTING IN BED, IN STABLE CONDITION.
--- NOTE | 2018-01-09 07:36 | NUR ---
REPORT RECEIVED FROM [employer] LABOURER NURSE, PT RESTING QUIETLY IN NAD, RESP EVEN UNLABORED, SKIN WARM DRY COLOR WNL, GT FEEDING ON GOING, ABD BINDER IN PLACE, IV SITE WITH SWELLING, IV STOPPED, RESTRAINTS REMOVED AND MITTENS PLACED AT THIS TIME, PLAN OF CARE REVIEWED, ALL SAFETY MEASURES ENSURED, WILL CONTINUE TO MONTIOR.
[2018-01-09 08:00] VITALS: BP 109/78
[2018-01-09] MEDS: LACTULOSE 20 GM/30 ML UDC PO SCH (09:00)
[2018-01-09] MEDS: busPIRone 5 MG TAB PO SCH (09:21)
--- NOTE | 2018-01-09 09:45 | NUR ---
BED BATH GIVEN, LOOSE STOOL X1, DIAPER CHANGED, LINEN CHANGED, PERICARE DONE, GT SITE CLEANED AND DRESSING CHANGED.
[2018-01-09] MEDS ORDERED: CHLORHEXADINE GLUC 2% CLOTH TP SCH ×2 (10:25→10:33)
[2018-01-09] MEDS: DEXT 5% /NACL 0.9% 1,000 ML IV SCH (10:41)
--- NOTE | 2018-01-09 10:45 | NUR ---
WOUND CARE NURSE ROBERT AT BEDSIDE.
--- NOTE | 2018-01-09 10:45 | NUR ---
WOUND CARE EVALUATION NOTE: REASON FOR EVALUATION:LEFT WRIST BITE WOUND SKIN ASSESSMENT DONE ON THIS 47 Y/O MALE PATIENT ADMITTED TO [facility], WITH INITIAL DIAGNOSIS OF GT PLACEMENT. 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 ALL ABOVE INFORMATION WAS OBTAINED FROM THE ADMISSION H&P. LABS ARE WBC 10.2, H/H 10.5/32.3, GLUCOSE 150,AND ALBUMIN 2.6. PATIENT EYES OPEN AND CONSTANTLY MOVING WITH HANDS TOWARD HIS MOUTH DURING ASSESSMENT. SKIN WARM TO TOUCH, TOENAILS ARE SLIGHTLY THICKENED, NO EDEMA,, WITH FEW HAIR GROWTH AND BILATERAL PEDAL PULSES PRESENT AND NORMAL. BOWEL AND BLADDER INCONTINENT. GT PATENT AND FUNCTIONALE AT THIS TIME . NEEDS MAX ASSISTANCE IN TURNING. INITIAL PLAN OF CARE AND PRESSURE PREVENTIVE MEASURES DISCUSSED WITH PRIMARY RN. INTEGUMENTARY: GT REYES -STOMA SKIN INTACT LEFT WRIST BITE WOUND 3X4X0.2CM WOUND BED PALE PINK AND YELLOW, SMALL AMOUNT OF SEROUS DRAINAGE, NO ODOR, WOUND EDGE IRREGULAR SHAPE, WITH REYES-WOUND PINK AND INTACT SKIN INCONTINENT ASSOCIATE DERMATITIS TO SACRALCOCCYX , L/R BUTTOCKS - RED AND MOIST, SKIN INTACT BLE HIPS AND KNEES CONTRACTURES RECOMMENDATIONS: -CLEANSE LEFT WRIST WOUND WITH NS, PAT DRY, APPLY SILVERSORB GEL, COVER WITH DRY DRESSING SECURE WITH TAPE, QOD AND PRN IF SOILING -SACRALCOCCYX, BILATERAL BUTTOCKS: CLEANSE WITH MILD SOAP AND WATER, PAT DRY, APPLY HYDRAGUARD BIDWC AND PRN WITH SOILING LEAVE OPEN TO AIR -TURN AND REPOSITION PATIENT Q2H TO LEFT AND RIGHT SIDE ONLY TO OFFLOAD SACRALCOCCYX AND BUTTOCKS -ASSESS AND MONITOR SKIN CONDITION DURING POSITION CHANGE, PLEASE PAY ATTENTION TO SACRALCOCCYX, ELBOWS AND KNEES -OFFLOAD BILATERAL HEELS BY PLACING PILLOWS UNDER CALVES AT ALL TIMES, UNLESS OTHERWISE CONTRAINDICATED -KEEP SKIN CLEAN AND DRY AT ALL TIMES. -PRESSURE REDISTRIBUTION SURFACE THERAPY. RECOMMENDATIONS DISCUSSED WITH PRIMARY RN PLEASE CONTACT WOUND CARE NURSE FOR ANY QUESTIONS AND CHANGES IN WOUND CONDITION.
--- NOTE | 2018-01-09 11:30 | NUR ---
BLOOD SUGAR 96, NO INSULIN NEEDED
[2018-01-09] MEDS ORDERED: MUPIROCIN 2% OINT 22 GM TUBE TP SCH (12:00)
[2018-01-09] MEDS ORDERED: LACT10SO11 GT (12:56)
[2018-01-09] MEDS ORDERED: BACTO TP (12:56)
[2018-01-09] MEDS ORDERED: BUS5 GT (12:56)
--- NOTE | 2018-01-09 12:58 | NUR ---
TOMMY (SENIOR DATA ANALYST )FROM [facility] AT BEDSIDE, PLAN OF CARE REVIEWED, ALL QUIESTIONS ASKED AND ANSWERED, PHONE NUMBER [phone], WILL CALL WHEN PT READY TO DC HOME.
--- NOTE | 2018-01-09 13:00 | NUR ---
I received a call back from Mrs. Lebron stating that the patient will be grape picker by a staff member form [facility] between 15:00 to 16:00. I thank Mrs. Price for information, and call back then I ended the call.
--- NOTE | 2018-01-09 13:47 | NUR ---
PER TOMMY AT [facility], SUGAR REFINER WILL IT WEB DEVELOPMENT CONSULTANT PT AFTER 1500 FOR DC HOME. WILL HAVE PT READY FOR DC.
[2018-01-09] MEDS ORDERED: HYDRAGUARD CREAM TP PRN (14:15)
--- NOTE | 2018-01-09 14:35 | NUR ---
REPORT GIVEN TO MARGARET WOOD AT [facility]. LAB COURIER FROM [facility] TO COME GLUE DRIER OPERATOR PT BETWEEN 15-16
[2018-01-09 16:00] VITALS: BP 115/70
--- NOTE | 2018-01-09 17:30 | NUR ---
TRAVEL COORDINATOR FROM [facility], MR BREEN PICKED UP PT IN PRIVATE WHEELCHAIR DC HOME TO [facility] IN PRIVATE VEHICLE. PT IN STABLE CONDITION.
[2018-01-10] MEDS ORDERED: HYDRAGUARD CREAM TP SCH (01:00)
[2018-01-10] MEDS ORDERED: TRANSPARENT DRESSING TP SCH (09:00)
[2018-01-10] MEDS ORDERED: MILD SOAP AND WATER TP SCH (13:00)
[2018-01-11] MEDS ORDERED: NACL 0.9% IRR 250 ML BOTTLE IR SCH (13:00)
== END 2018-01-09 17:30 | disposition home or self-care (01) | DRG 222 ==
LOC: MED 16:35 → MTU 19:33 → UNDOADMIN 19:33 → MMU 19:33
PROVIDERS: ADMIT Preventive Medicine Preventive Medicine/Occupational Environmental Medicine; ATTEND Preventive Medicine Preventive Medicine/Occupational Environmental Medicine
PROC: 0DH68UZ Insertion of Feeding Device into Stomach, Via Natural or Artificial Opening Endoscopic (ICD-10-PCS; principal; 2018-01-08)
DX: K94.23 Gastrostomy malfunction (principal); E43 Unspecified severe protein-calorie malnutrition; E87.0 Hyperosmolality and hypernatremia; E88.09 Other disorders of plasma-protein metabolism, not elsewhere classified; F79 Unspecified intellectual disabilities; G40.909 Epilepsy, unspecified, not intractable, without status epilepticus; D64.9 Anemia, unspecified; E87.6 Hypokalemia; R73.9 Hyperglycemia, unspecified; Y65.8 Other specified misadventures during surgical and medical care; Y73.8 Miscellaneous gastroenterology and urology devices associated with adverse incidents, not elsewhere classified; Z22.322 Carrier or suspected carrier of Methicillin resistant Staphylococcus aureus; Y92.89 Other specified places as the place of occurrence of the external cause
CPT/HCPCS: 36415; 71045; 74018; 80048; 80053; 81003; 82948; 83690; 85025; 85610; 87081; 93005; 99285; C1758; J1956; J2060; J2270; J7030; J7042; Q0092

== ENCOUNTER 2021-07-14 07:13 | Emergency (ER) | payer MEDICAID ==
[~2021-07-14] VITALS: Ht 152.4 cm; Wt 52.2 kg
[~2021-07-14 07:13] MED LIST changes: +BACTO TP; +BUS5 GT; -LACT10SO1 GT; +LACT10SO11 GT; -TRAZ-286 GT; +TRAZ-343 GT
[2021-07-14 07:14] VITALS: BP 105/38
--- NOTE | 2021-07-14 07:18 | NUR ---
PATIENT TAKEN TO BED 1 VIA GURNEY.
--- NOTE | 2021-07-14 08:00 | NUR ---
50 Y MALE BIBA FROM HOME DUE TO G-TUBE REMOVAL THIS AM AROUND 7AM. PER EMS PT HAD REMOVED HIS G-TUBE AND HOME NURSE WAS UNABLE TO PLACE BACK IN. PER EMS PT HAD [address]. PT IS NON-VERBAL BUT ABLE TO FOLLOW COMMANDS. PT GOES BY [facility]: MENTAL HEALTH DELAY MOHAMUD
--- NOTE | 2021-07-14 08:15 | NUR ---
ER BEDSIDE PLACING NEW G-TUBE INTO PLACE
--- NOTE | 2021-07-14 08:30 | NUR ---
XRAY BEDSIDE WITH PT
[2021-07-14 10:06] VITALS: BP 105/38
--- NOTE | 2021-07-14 10:07 | NUR ---
Patient discharged with v/s stable. Written and verbal after care instructions given and explained. Patient verbalized understanding. Wheel Chair Assisted with to home. All questions addressed prior to discharge. Advised to follow up with PMD.
== END 2021-07-14 10:07 | disposition home or self-care (01) ==
LOC: MED 07:13
DX: K94.23 Gastrostomy malfunction (principal); Z79.899 Other long term (current) drug therapy
CPT/HCPCS: 99284; Q0092

== ENCOUNTER 2024-06-15 09:06 | Emergency (ER) | payer MEDICAID, OTHER ==
[~2024-06-15] VITALS: Ht 147.3 cm; Wt 38.1 kg
[~2024-06-15 09:06] MED LIST changes: -METO5SOL19 GT; +METO5SOL78 GT
[2024-06-15 09:28] VITALS: BP 133/82; PULSE 86; RESP 17
[2024-06-15 09:38] LABS: APPEARANCE,URINE SL CLOUDY (CLEAR); BILIRUBIN,URINE NEGATIVE (NEGATIVE); BLOOD, URINE 3+ (NEGATIVE); COLOR,URINE YELLOW (YELLOW); LEUKOCYTE ESTERASE ,URINE TRACE (NEGATIVE); NITRITE, URINE NEGATIVE (NEGATIVE); PROTEIN,URINE 1+ (NEGATIVE); UGLUCOSE NEGATIVE (NEGATIVE); UROBILINOGEN,URINE 0.2 EU/dL (0.2 - 1)
[2024-06-15 09:57] LABS: BACTERIA,URINE OCCASSIONAL /HPF (None Seen); RBC,URINE TOO NUMEROUS TO COUN /HPF (0-5); SQUAMOUS EPITHELIAL CELL,UR 0-3 (FEW) /LPF (0-3 (FEW)); WBC,URINE 0-5 /HPF (0-5)
[2024-06-15] MEDS ORDERED: CIPR500T4 PO (13:11)
[2024-06-15 13:50] VITALS: BP 128/74; PULSE 78; RESP 16; TEMP 98.1; O2SAT 98
== END 2024-06-15 14:19 | disposition home or self-care (01) ==
LOC: MED 09:06
DX: N30.91 Cystitis, unspecified with hematuria (principal); Z86.69 Personal history of other diseases of the nervous system and sense organs; Z79.2 Long term (current) use of antibiotics; Z79.1 Long term (current) use of non-steroidal anti-inflammatories (NSAID); Z79.899 Other long term (current) drug therapy
CPT/HCPCS: 81001; 99284